=== PATIENT | female | born 1980 | race Caucasian/White ===

== ENCOUNTER 2020-07-01 18:09 | Emergency (ER) | payer BC, SELFPAY ==
--- NOTE | ~2020-07-01 | XR_ITS ---
XR chest 2V DATE: 07/01/2020 18:41 INDICATION: Productive cough TECHNIQUE: 2 views COMPARISON: 10/01/2013 2 view chest FINDINGS: Normal heart size. No hilar or mediastinal enlargement. No pulmonary infiltrate or consolid ation, pleural effusion or pulmonary vascular congestion or pneumothorax. There is dextroscoliosis and degenerative spurring of the thoracic spine. IMPRESSION: No active cardiopulmonary disease Reviewed, dictated and finalized at location A.
[2020-07-01 18:23] VITALS: BP 149/102; PULSE 88; RESP 16; TEMP 36.9; O2SAT 99
[2020-07-01 18:30] VITALS: BP 149/102; PULSE 88; RESP 16; TEMP 36.9; O2SAT 99
--- NOTE | 2020-07-01 18:32 | ED.BACK ---
HPI - Back Pain/Injury General Chief Complaint: Back Pain/Injury Stated Complaint: back pain Time Seen by Provider: 07/01/20 18:32 Source: patient Mode of arrival: ambulatory Limitations: no limitations History of Present Illness HPI Narrative: Sanjuanita Tang is a 40 yo female with a PMH of diabetes, GERD, kidney stones, who comes to express care for treatment of 2 possibly different complaints. First is that she has had upper respiratory symptoms with a nonproductive cough for 3 weeks. She is been COVID tested x2 and did get better for peer to 3 days before she again had return of symptoms. The second symptom that may be intertwined are separate is left back pain. She states that she feels like something is being her upper chest therefore we are going to x-ray her chest and treat her back pain is musculoskeletal to see if there is improvement. Pain is 2/10 with Advil without Advil it is 8 out of 10 Related Data Home Medications Medication Instructions Recorded Confirmed metformin 1,000 mg tablet 1,000 mg PO BID 08/17/19 07/01/20 pantoprazole 40 mg tablet,delayed 40 mg PO QAM 08/17/19 07/01/20 release empagliflozin [Jardiance] 10 mg PO DAILY 07/01/20 07/01/20 Allergies Allergy/AdvReac Type Severity Reaction Status Date / Time amoxicillin Allergy Intermediate rash Verified 07/01/20 18:24 dulaglutide Allergy Unknown Unknown Verified 07/01/20 18:24 morphine Allergy Unknown hives Verified 07/01/20 18:24 topiramate Allergy Unknown Hives Verified 07/01/20 18:24 Review of Systems Review of Systems: Narrative: CONSTITUTIONAL: Denies fever, chills, sweats. EYES: Denies visual changes, redness, discharge. ENT: Denies rhinorrhea, congestion, sore throat, otalgia. CARDIOVASCULAR: Denies chest pain, palpitations, edema. RESPIRATORY: Denies dyspnea, wheezing, dry cough GASTROINTESTINAL: Denies abdominal pain, nausea, vomiting, diarrhea. GENITOURINARY: Denies dysuria, hematuria, abnormal discharge SKIN: Denies rash or itching. NEUROLOGIC: Denies numbness, or focal weakness. PSYCHIATRIC: Denies anxiety or depression. Left back pain PMFSH Past Medical History Medical History Allergies Elevated liver enzymes GERD (gastroesophageal reflux disease) Hyperlipidemia Obesity Type 2 diabetes mellitus Surgical History Surgical History H/O removal of cyst Foot cyst 2006 H/O tubal ligation 2002 H/O: hysterectomy 2016 Family History Family History Mother Hypertension Family history of diabetes mellitus in first degree relative Diabetes mellitus Father Patient's father is in good health Family history of glaucoma Acute myocardial infarction Family history of malignant neoplasm of urinary bladder S/P triple vessel bypass Sibling Patient's brother is in good health Grandparent Diabetes mellitus Other Family history of rheumatoid arthritis Social History Social History Smoking status: Never smoker Alcohol intake: current Substance use: never Gender identity (if verbalized by the patient): Female Comments At time of signature, I agree with nursing past medical, surgical, social and family history. There is no relevant family history pertinent to the presenting complaint. Patient is hypertensive and so we referred for follow-up to primary care physician Exam Narrative: Exam Narrative: GENERAL: This is a well-nourished, well-developed patient, in mild distress. HEAD: normocephalic, atraumatic. EYES: PERRL. Sclera clear/white. Vision is grossly intact. EARS: External ears normal, Hearing grossly intact. NOSE: External nose normal without nasal discharge, nares without redness, no rhinorrhea. THROAT: Mucous membranes moist, posterior pharynx NECK: Neck supple, non-tender CARDIOVASCU
== END 2020-07-01 19:02 | disposition home or self-care (01) ==
PROVIDERS: Emergency Provider Nurse Practitioner; PCP Family Medicine
DX: S39.012A Strain of muscle, fascia and tendon of lower back, initial encounter (principal); X58.XXXA Exposure to other specified factors, initial encounter; R31.9 Hematuria, unspecified; K21.9 Gastro-esophageal reflux disease without esophagitis; E78.5 Hyperlipidemia, unspecified; E11.9 Type 2 diabetes mellitus without complications; E66.9 Obesity, unspecified; Z68.41 Body mass index [BMI] 40.0-44.9, adult
CPT/HCPCS: 71046; 81003; 99213; G0463

== ENCOUNTER 2020-07-04 16:02 | Inpatient (IN) | payer BC, SELFPAY ==
[2020-07-04] VITALS (10 sets, daily range): BP systolic 117–146; BP diastolic 63–98; PULSE 83–107; RESP 12–29; TEMP 36.4–36.9; O2SAT 88–94; BMI 38.9
--- NOTE | ~2020-07-04 | XR_ITS ---
EXAMINATION: XR chest 1V portable DATE: 07/10/2020 06:00 INDICATION: COVID 19 TECHNIQUE: frontal view of the chest was obtained. COMPARISON: Chest radiograph dated 07/08/2020 FINDINGS: Lung volumes remain small. No significant interval change accounting for differences in patient posit ioning in bilateral patchy airspace opacities throughout both lungs. No pneumothorax or definitive pl eural effusion. The cardiomediastinal silhouette is normal limits for AP technique. IMPRESSION: 1. Stable appearance of small lung volumes with diffuse bilateral lung disease consistent with pneumo yris. Reviewed, dictated and finalized at location A. IMPRESSION: 1. Stable appearance of small lung volumes with diffuse bilateral lung disease consistent with pneumonia.
--- NOTE | ~2020-07-04 | CT_ITS ---
EXAMINATION: CTA chest PE protocol EXAM DATE: 07/04/2020 20:25 INDICATION: Shortness of breath, left flank pain. TECHNIQUE: Spiral CTA of the chest (pulmonary arteries) was performed with 100 cc Omnipaque 350 intr avenous contrast injection. Images were acquired during the pulmonary arterial phase. Coronal maxi mum intensity projection 3D-reconstructions were created by the technologist on dedicated workstation . Axial, coronal and sagittal reformatted images were reviewed. The dose-length product (DLP) for t his examination was 839.83 mGy-cm. The exposure was tailored according to patient size (auto mA exp osure control), and iterative reconstruction (ASIR) was used as additional dose reduction technique. There is no prior study for comparison. FINDINGS: There are no pulmonary emboli in the 1st through 3rd order (central and interlobar) pulmon cullen arteries. Some loss of attenuation in the left basilar segmental pulmonary arteries due to respi ratory motion, but no intraluminal filling defects suspected. No thoracic aortic dissection. Patchy bilateral groundglass opacities, probably result of acute infectious, possibly COVID-19. Multi segmental bibasilar atelectasis. There are no pleural or pericardial effusions. Tracheobronchial t ree is patent. There is no mediastinal, hilar or axillary lymphadenopathy. There is no pneumothor ax. Heart normal in size. No evidence of coronary arterial calcification. There is hepatic steat osis. There is thoracic spondylosis without osteoblastic or osteolytic lesions identified. IMPRESSION: 1. Limited left basilar segmental evaluation, but no pulmonary emboli are suspected. 2. Scattered groundglass opacities likely acute infectious process, possible COVID-19. 3. Bibasilar multisegmental atelectasis. Reviewed, dictated and finalized at location A. IMPRESSION: 1. Limited left basilar segmental evaluation, but no pulmonary emboli are susp ected. 2. Scattered groundglass opacities likely acute infectious process, possible C OVID-19. 3. Bibasilar multisegmental atelectasis.
--- NOTE | ~2020-07-04 | XR_ITS ---
EXAMINATION: XR chest 1V portable DATE: 07/08/2020 06:04 INDICATION: COVID-19 pneumonia. TECHNIQUE: A single frontal view of the chest was obtained. COMPARISON: Chest single view 07/06/2020, chest CT 07/04/2020 FINDINGS: There are patchy airspace opacities in all lung zones bilaterally. No pleural effusion or p neumothorax. The heart size is normal. IMPRESSION: 1. Stable diffuse lung disease, consistent with pneumonia. Reviewed, dictated and finalized at location A.
--- NOTE | ~2020-07-04 | XR_ITS ---
EXAMINATION: XR chest 1V portable DATE: 07/06/2020 10:47 INDICATION: COVID pneumonia. Worsening hypoxia. TECHNIQUE: frontal view of the chest was obtained. COMPARISON: Chest radiograph dated 07/04/2020 FINDINGS: Interval progression in patchy airspace opacities in the bilateral mid and lower lung zones consisten t with worsening pneumonia. No pleural effusion or pneumothorax. The cardiomediastinal silhouette is normal. IMPRESSION: 1. Worsening bilateral multifocal pneumonia. Reviewed, dictated and finalized at location B.
--- NOTE | ~2020-07-04 | XR_ITS ---
EXAMINATION: XR chest 1V portable EXAM DATE: 07/04/2020 18:43 INDICATION: Shortness of breath, cough and fever. TECHNIQUE: Portable AP frontal chest x-ray was obtained. Comparison is made to prior examination from 07/01/2020. FINDINGS: Interval development of multiple mid and lower lung zone opacities, some regions of atelect asis but also probably acute infectious process. Please considered/excluded acute lung injury from SA RS-CoV-2. Probable small pleural effusions have developed. Relatively low lung volume. The cardiomedi astinal silhouette is prominent but magnified on this AP technique. There is no pneumothorax suspecte d. IMPRESSION: Development of moderate amount of acute airspace disease. Consider/excluded COVID-19. Reviewed, dictated and finalized at location A. IMPRESSION: Development of moderate amount of acute airspace disease. Consider/ excluded COVID-19.
--- NOTE | 2020-07-04 18:06 | PC.NURSE ---
EKG performed at 1800 and shown to ANA at 1804
--- NOTE | 2020-07-04 18:17 | ECG_ITS ---
Measurements Intervals [place] Rate: 93 P: 42 AK: 144 QRS: 1 QRSD: 89 T: 9 QT: 339 QTc: 422 Interpretive Statements SINUS RHYTHM DELAYED PRECORDIAL R/S TRANSITION BORDERLINE T WAVE ABNORMALITY- INFERIOR LEADS BORDERLINE ECG Electronically Signed On 07-04-2020 18:44:14 CDT by Tony Montana D.O.
[2020-07-04 18:42] LABS: Basophils Percent Auto 0.2 % (0.2-1.2); Hematocrit 48.7 % (37.0-47.0); Hemoglobin 16.3 g/dL (12.0-15.0); Immature Granulocyte Absolute 0.02 K/mm3 (0.00-0.031); Immature Granulocyte Percent A 0.5 % (0-0.5); Lymphocytes Absolute Auto 0.63 K/mm3 (0.9-3.2); Lymphocytes Percent Auto 14.7 % (18.3-44.2); Mean Corpuscular HGB Conc 33.5 g/dl (32-36); Mean Corpuscular Hemoglobin 29.1 pg (26-34); Mean Platelet Volume 11.8 fl (7.4-10.4); Monocytes Absolute Auto 0.3 K/mm3 (0.1-0.6); Monocytes Percent Auto 6.1 % (2.6-8.5); Neutrophils Absolute Auto 3.4 K/mm3 (1.3-6.7); Neutrophils Percent Auto 78.5 % (45.5-73.1); Platelet Count Result 164 k/mm3 (150-375); Red Cell Distribution Width 13.3 % (11.5-14.5); White Blood Count 4.3 K/mm3 (4.5-10.0)
[2020-07-04 19:00] LABS: Anion Gap 9 mmol/L (8-16); Blood Urea Nitrogen 11 mg/dL (7-17); Calcium 8.9 mg/dL (8.4-10.2); Carbon Dioxide 30 mmol/L (22-30); Chloride 98 mmol/L (98-107); Estimated CRCL calculation 150 ml/min; Estimated Glomerular Filt Rate > 60; Glucose 305 mg/dL (65-105); Potassium 4.4 mmol/L (3.4-5.0); Sodium 137 mmol/L (137-145)
--- NOTE | 2020-07-04 19:32 | ED.SOB ---
HPI - SOB/Dyspnea General Chief Complaint: Shortness of Breath/Dyspnea Stated Complaint: L FLANK PAIN,PNFUL DEEP BREATH /-YYMAK2C AGO Time Seen by Provider: 07/04/20 17:57 Source: patient Mode of arrival: ambulatory Limitations: no limitations History of Present Illness HPI Narrative: This patient is a 40 year old female with history of DM, obesity who presents for shortness of breath. She reports she has been having shortness of breath since Thursday. She reports a feeling like she can not take a breath in. She has upper chest pain only with inspiration. She was tested for COVID yesterday at a mobile facility but she does not know her results. She had a negative Covid test 6 days ago. She states she has been coughing for 1 month and her sputum has now become yellow. She also reports a fever of 101 F today, and she took ibuprofen 600 mg at 2pm. She also reports nausea and vomiting yesterday. She has been taking prednisone. MD elicited complaint: shortness of breath Related Data Home Medications Medication Instructions Recorded Confirmed metformin 1,000 mg tablet 1,000 mg PO DAILY 08/17/19 07/04/20 pantoprazole 40 mg tablet,delayed 40 mg PO QAM 08/17/19 07/04/20 release empagliflozin [Jardiance] 10 mg PO DAILY 07/01/20 07/04/20 Allergies Allergy/AdvReac Type Severity Reaction Status Date / Time amoxicillin Allergy Intermediate rash Verified 07/01/20 18:24 dulaglutide Allergy Unknown Unknown Verified 07/01/20 18:24 morphine Allergy Unknown hives Verified 07/01/20 18:24 topiramate Allergy Unknown Hives Verified 07/01/20 18:24 Review of Systems Review of Systems: All systems reviewed & are unremarkable except as noted in HPI and below Constitutional: Constitutional: Reports chills, Reports fatigue and Reports fever(s) Cardiovascular: Cardiovascular: Reports chest pain and Denies radiating jaw, neck or arm pain Respiratory: Respiratory: Reports cough and Reports dyspnea Gastrointestinal: Gastrointestinal: Denies diarrhea, Reports nausea and Reports vomiting Genitourinary: Genitourinary: Denies hematuria, Denies dysuria and Reports flank pain Neurologic: Reports headache(s) PMFSH Past Medical History Medical History Allergies Elevated liver enzymes GERD (gastroesophageal reflux disease) Hyperlipidemia Obesity Type 2 diabetes mellitus Surgical History Surgical History H/O removal of cyst Foot cyst 2006 H/O tubal ligation 2002 H/O: hysterectomy 2016 Family History Family History Mother Hypertension Family history of diabetes mellitus in first degree relative Diabetes mellitus Father Patient's father is in good health Family history of glaucoma Acute myocardial infarction Family history of malignant neoplasm of urinary bladder S/P triple vessel bypass Sibling Patient's brother is in good health Grandparent Diabetes mellitus Other Family history of rheumatoid arthritis Social History Social History Smoking status: Never smoker Alcohol intake: current Drinks per week: 1 Substance use: never Gender identity (if verbalized by the patient): Female Spiritual care concerns: No Exam Const: General: alert and ill appearing Nutritional Appearance: obese Orientation/consciousness: patient oriented x3 Other: mild distress HENMT: Ears: TM's normal bilaterally Eyes: EOM: EOMs intact bilaterally Neck: Neck: normal visual inspection and no lymphadenopathy Chest: Chest palpation & inspection: normal inspection of the chest Resp: Effort & Inspection: no retractions and no use of accessory muscles Auscultation: clear to auscultation bilaterally, crackles and diminished lung sounds Other: mild tachypnea Cardio: Rate: regular rate Rhythm: regular rhythm Hear
[2020-07-04] MEDS: ALBUTEROL SULFATE (*SP) AEROSOL 1 PUFF 6 PUFF INHALATION (19:56)
[2020-07-04 19:57] LABS: Alanine Aminotransferase 198 U/L (4-35); Albumin Level 4.2 g/dL (3.5-5.1); Alkaline Phosphatase 102 U/L (38-126); Aspartate Amino Transferase 165 U/L (14-36); Bilirubin,Total 0.4 mg/dL (0.2-1.3)
[2020-07-04 20:03] LABS: CRP 2.7 mg/dL (<1.0)
[2020-07-04 20:07] LABS: Alveolar/Arterial O2 Gradient 144.2 mmHg; Carboxyhemoglobin 0.9 % THb (0-2.0); Fractional Inspired Oxygen 36 %; HCO3 ABG 27.6 mEq/l (22.0-26.0); Methemoglobin ABG 0.2 %THb (0-1.5); Oxygen Content ABG 21.1 %vol (16.0-22.0); Oxygen Saturation ABG 93.1 % (95.0-100.0); Oxyhemoglobin 91.8 % THb (90.0-100.0); PCO2 ABG 41.9 mmHg (35.0-45.0); PO2 ABG 63.9 mmHg (80.0-100.0); PO2 FiO2 Ratio Arterial Blood 1.78 %; Reduced Hemoglobin 7.1 %THb (0-5.0); Total Hemoglobin 16.4 g/dL (12.0-18.0); pH ABG 7.436 (7.350-7.450)
[2020-07-04 20:09] LABS: Troponin I < 0.012 ng/mL (0.000-0.034)
[2020-07-04 20:26] LABS: Add Urine Microscopic? YES; Amorphous Sediment Urine Few; Appearance Urine Clear (Clear); Bacteria Urine Trace /hpf; Bilirubin Urine Negative (Negative); Blood Urine Negative (Negative); Budding Yeast Urine Present /hpf; Color Urine Yellow (Yellow); Glucose Urine UA 3+ mg/dL (Negative); Ketones Urine 1+ mg/dL (Negative); Leukocyte Esterase Ur 1+ LEU/UL (Negative); Mucus Urine Rare /lpf; Nitrate Urine Negative (Negative); Protein Urine Negative (Negative); Squamous Epithelial Cell Urine Many /hpf (Few); Urobilinogen Urine Negative mg/dL (<2.0)
[2020-07-04 20:27] LABS: Lactic Acid Reflex 1.4 mmol/L (0.7-2.1)
[2020-07-04 20:28] LABS: Specific Grav Ur 1.037 (1.001-1.035)
[2020-07-04 20:50] LABS: Partial Thromboplastin Time 26.9 SECONDS (22.3-36.8); Prothrombin Time 13.2 Seconds (11.1-14.7)
--- NOTE | 2020-07-04 21:32 | PM.IMHP ---
H&P: HPI History of Present Illness Date/Time: 07/04/20 21:32 Chief complaint: acute respiratory failure, covid rule out Narrative: This is a pleasant 40 year morbidly obese Diabetic female who presented to the hospital with a complaint of worsening shortness of breath over the past four days. 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 Tonight she complains she is having a hard time getting a full breath. She has had a sporadic intermittent productive cough. Today she also had a fever of 101 F at home. In the ER tonight the patient has been nauseated and vomiting. She has not eaten anything today. Routine labs demonstrated an elevated d-dimer. CTA chest revealed scattered groundglass opacities. The patient was placed on 4L of oxygen via NC and given a breathing treatment and antibiotics. She denies any other symptoms at this time. Review of Systems Review of Systems: All systems reviewed & are unremarkable except as noted in HPI and below PMFSH Past Medical History Medical History Allergies Elevated liver enzymes GERD (gastroesophageal reflux disease) Hyperlipidemia Obesity Type 2 diabetes mellitus Surgical History Surgical History H/O removal of cyst Foot cyst 2006 H/O tubal ligation 2002 H/O: hysterectomy 2016 Family History Family History Mother Hypertension Family history of diabetes mellitus in first degree relative Diabetes mellitus Father Patient's father is in good health Family history of glaucoma Acute myocardial infarction Family history of malignant neoplasm of urinary bladder S/P triple vessel bypass Sibling Patient's brother is in good health Grandparent Diabetes mellitus Other Family history of rheumatoid arthritis Social History Social History Smoking status: Never smoker Alcohol intake: current Drinks per week: 1 Substance use: never Gender identity (if verbalized by the patient): Female Spiritual care concerns: No Meds Home Medications and Allergies Home Medications Medication Instructions Recorded Confirmed Type metformin 1,000 mg tablet 1,000 mg PO DAILY 08/17/19 07/04/20 History pantoprazole 40 mg tablet,delayed 40 mg PO QAM 08/17/19 07/04/20 History release albuterol sulfate 2 inh INHALATION QID PRN #1 ea 07/01/20 07/04/20 Rx empagliflozin [Jardiance] 10 mg PO DAILY 07/01/20 07/04/20 History Allergies Allergy/AdvReac Type Severity Reaction Status Date / Time amoxicillin Allergy Intermediate rash Verified 07/01/20 18:24 dulaglutide Allergy Unknown Unknown Verified 07/01/20 18:24 morphine Allergy Unknown hives Verified 07/01/20 18:24 topiramate Allergy Unknown Hives Verified 07/01/20 18:24 Vital Signs Vital Signs - 24 hr 07/04/20 18:01 07/04/20 18:26 07/04/20 18:30 Temperature 36.4 C Pulse Rate 98 105 H 107 H Respiratory Rate 24 H 24 H 12 Blood Pressure 146/98 H Pulse Oximetry 91 93 88 L 07/04/20 18:31 07/04/20 18:32 07/04/20 18:45 Temperature Pulse Rate 96 100 98 Respiratory Rate 29 H 29 H Blood Pressure 125/82 Pulse Oximetry 93 93 93 07/04/20 18:46 07/04/20 18:47 07/04/20 20:40 Temperature Pulse Rate 95 98 103 H Respiratory Rate 28 H 28 H 18 Blood Pressure 133/79 135/88 Pulse Oximetry 93 93 93 Exam Const: General: cooperative, alert, awake, acute distress mild and other (On 4L of oxygen via NC. ) Nutritional Appearance: obese morbidly obese Orientation/consciousness: patient oriented x3 HENMT: Head: normal to inspection General nose exam: Normal external nose present Face and sinus: normal facial exam Mouth: Yes Normal oral and palatal mucosa present and Yes oropharynx normal Eyes: Pupils: Equal, round and reactive pupils present
--- NOTE | 2020-07-04 22:02 | ADMGEN ---
This patient, Sanjuanita Tang, was admitted to 3 [facility] Surg Room 329-01. Patient/family oriented to hospital policies and general routines including ID bracelet, bed and alarms, visiting hours, pain management, procedures, bathroom and other care routines, personal items, smoking policy, room service/diet, and visiting hours. Valuables list has been completed. Information on how to activate the Rapid Response Team has been discussed. Patient/Family are encouraged to report perceived risks to care and to ask questions if they do not understand what they are told or what they should do.
[2020-07-04] MEDS: SODIUM CHLORIDE 0.9% IV 1,000 ML 125 ML IV CONT (22:13)
[2020-07-05] VITALS (9 sets, daily range): BP systolic 123–145; BP diastolic 73–89; PULSE 82–108; RESP 18–20; TEMP 36.8–37.1; O2SAT 87–94
[2020-07-05 03:43] LABS: Influenza Control Positive
[2020-07-05 06:23] LABS: Basophils Percent Auto 0.2 % (0.2-1.2); Hematocrit 43.5 % (37.0-47.0); Hemoglobin 14.4 g/dL (12.0-15.0); Immature Granulocyte Absolute 0.01 K/mm3 (0.00-0.031); Immature Granulocyte Percent A 0.2 % (0-0.5); Lymphocytes Absolute Auto 1.18 K/mm3 (0.9-3.2); Lymphocytes Percent Auto 20.5 % (18.3-44.2); Mean Corpuscular HGB Conc 33.1 g/dl (32-36); Mean Corpuscular Hemoglobin 28.4 pg (26-34); Mean Corpuscular Volume 85.8 fl (80-100); Mean Platelet Volume 11.3 fl (7.4-10.4); Monocytes Absolute Auto 0.5 K/mm3 (0.1-0.6); Monocytes Percent Auto 8.3 % (2.6-8.5); Neutrophils Absolute Auto 4.1 K/mm3 (1.3-6.7); Neutrophils Percent Auto 70.8 % (45.5-73.1); Platelet Count Result 152 k/mm3 (150-375); Red Blood Count 5.07 M/mm3 (4.2-5.4); Red Cell Distribution Width 13.3 % (11.5-14.5); White Blood Count 5.8 K/mm3 (4.5-10.0)
[2020-07-05 07:05] LABS: Alanine Aminotransferase 150 U/L (4-35); Albumin Level 3.6 g/dL (3.5-5.1); Alkaline Phosphatase 78 U/L (38-126); Anion Gap 9 mmol/L (8-16); Aspartate Amino Transferase 118 U/L (14-36); Bilirubin,Total 0.4 mg/dL (0.2-1.3); Blood Urea Nitrogen 12 mg/dL (7-17); Calcium 8.1 mg/dL (8.4-10.2); Carbon Dioxide 29 mmol/L (22-30); Chloride 99 mmol/L (98-107); Estimated CRCL calculation 144 ml/min; Estimated Glomerular Filt Rate > 60; Glucose 210 mg/dL (65-105); Potassium 3.7 mmol/L (3.4-5.0); Sodium 137 mmol/L (137-145)
[2020-07-05 07:41] LABS: Device NASAL CANNULA; Modified Allen's Test Pass; Site Drawn RIGHT RADIAL
[2020-07-05] MEDS: DEXAMETHASONE 2 MG TABLET 6 MG PO (08:16)
[2020-07-05] MEDS: metFORMIN HCL 500 MG TABLET 1000 MG PO (08:16)
[2020-07-05] MEDS: PANTOPRAZOLE 40 MG TABLET PO (08:17)
[2020-07-05] MEDS: SODIUM CHLORIDE 0.9% IV 1,000 ML 125 ML IV CONT (08:18)
[2020-07-05] MEDS: ALBUTEROL SULFATE (*SP) AEROSOL 1 PUFF 6 PUFF INHALATION ×4 (08:18→20:51)
[2020-07-05] MEDS: INSULIN ASPART (*BKC) 100 UNITS/ML SUB-Q ×3 (08:24→17:14)
[2020-07-05 09:06] LABS: Glucose Point of Care 208 (65-105)
[2020-07-05 14:20] LABS: SARS-CoV-2 RNA PCR Positive
--- NOTE | 2020-07-05 15:17 | PM.IMPN ---
Progress Note: A&P Assessment and Plan (1) Pneumonia due to COVID-19 virus: Code(s): U07.1 - COVID-19; J12.89 - Other viral pneumonia Status: Acute Assessment and Plan: -----patient's symptoms, CT findings and PCR testing consistent with COVID-19. She is currently on 3 L and her oxygen saturation is 91%. Since she is COVID positive I will stop the ceftriaxone, azithromycin and IV fluids at this time. Patient appears euvolemic on exam. She has been on Decadron. Remdesivir has not been started due to elevated liver enzymes. She was instructed to continue to take deep breaths. She has a decreased appetite and diarrhea which is also consistent with COVID-19. Continue supportive care at this time and monitor closely. Will start Lovenox (2) Acute respiratory failure with hypoxia: Code(s): J96.01 - Acute respiratory failure with hypoxia Status: Acute Assessment and Plan: -----secondary to above (3) Pneumonia: Code(s): J18.9 - Pneumonia, unspecified organism Status: Acute Assessment and Plan: -----see above. Influenza negative (4) Suspected 2019 novel coronavirus infection: Code(s): Z20.828 - Contact with and (suspected) exposure to other viral communicable diseases Status: Acute (5) Sepsis: Qualifiers: Sepsis type: sepsis due to unspecified organism Sepsis acute organ dysfunction status: with acute organ dysfunction Severe sepsis acute organ dysfunction type: acute respiratory failure Acute respiratory failure type: with hypoxia Severe sepsis shock status: without septic shock Qualified Code(s): A41.9 - Sepsis, unspecified organism; R65.20 - Severe sepsis without septic shock; J96.01 - Acute respiratory failure with hypoxia Code(s): A41.9 - Sepsis, unspecified organism Status: Acute Assessment and Plan: -----noted on exam with tachycardia, tachypnea, and leucopenia. Source of sepsis appears to be due to COVID-19. Blood cultures are pending and UA appears to be contaminated (6) Elevated liver enzymes: Code(s): R74.8 - Abnormal levels of other serum enzymes Status: Acute Assessment and Plan: ------May be secondary to COVID-19 vs. fatty liver disease. Monitor LFTs. Hepatitis panel in the morning (7) Type 2 diabetes mellitus: Qualifiers: Diabetes mellitus retirement insulin use: without roasterman use Diabetes mellitus complication status: without complication Qualified Code(s): E11.9 - Type 2 diabetes mellitus without complications Code(s): E11.9 - Type 2 diabetes mellitus without complications Status: Chronic Assessment and Plan: ------last glucose 208. Likely more elevated due to steroids. Continue Accuchecks, SSI coverage, hypoglycemic protocol. Continue Metformin and Jardiance. (8) GERD (gastroesophageal reflux disease): Qualifiers: Esophagitis presence: without esophagitis Qualified Code(s): K21.9 - Gastro-esophageal reflux disease without esophagitis Code(s): K21.9 - Gastro-esophageal reflux disease without esophagitis Status: Acute Assessment and Plan: Continue Protonix. Additional Plan Time Spent With Patient Time with patient: 25 - 35 minutes Subjective Date/time seen: 07/05/20 15:17 Interval history: Pt is a 40-year-old female here for COVID-19 pneumonia. Patient was seen today and states she is having a hard time taking deep breaths as it hurts when she does so. She is still coughing but she is now coughing up some yellow sputum. She feels short of breath with any activity. She says her is at home with the same symptoms. She started having diarrhea today and has a low appetite. She denies chest pain nausea or vomiting. Review of Systems Review of Systems: All systems reviewed & are unremarkable except as noted in HPI and below Exam Narrative: Exam Narrative: Gen
[2020-07-05] MEDS: ENOXAPARIN 40 MG/0.4 ML SYRINGE SUB-Q (17:08)
[2020-07-05 17:49] LABS: Glucose Point of Care 278 (65-105)
[2020-07-05 17:49] LABS: Glucose Point of Care 254 (65-105)
--- NOTE | 2020-07-05 18:55 | PC.NURSE ---
[address] knapp regarding pharmacy clerification , pt unable to get her jardiance her and does not want to start invokana. just continue metformin and sliding scaale.
[2020-07-05 21:18] LABS: Glucose Point of Care 235 (65-105)
[2020-07-05] MEDS: ALPRAZolam (*CRX) 0.25 MG TABLET PO (21:21)
[2020-07-06] VITALS (14 sets, daily range): BP systolic 127–165; BP diastolic 61–90; PULSE 73–106; RESP 16–32; TEMP 37.1–37.8; O2SAT 78–96
[2020-07-06] MEDS: ACETAMINOPHEN 325 MG TABLET 650 MG PO ×3 (05:05→17:17)
[2020-07-06 06:46] LABS: Hematocrit 44.3 % (37.0-47.0); Hemoglobin 14.6 g/dL (12.0-15.0); Mean Corpuscular Hemoglobin 28.6 pg (26-34); Mean Corpuscular Volume 86.9 fl (80-100); Mean Platelet Volume 11.4 fl (7.4-10.4); Platelet Count Result 168 k/mm3 (150-375); Red Cell Distribution Width 13.4 % (11.5-14.5); White Blood Count 6.7 K/mm3 (4.5-10.0)
[2020-07-06 06:59] LABS: Alanine Aminotransferase 153 U/L (4-35); Albumin Level 3.5 g/dL (3.5-5.1); Alkaline Phosphatase 73 U/L (38-126); Anion Gap 9 mmol/L (8-16); Aspartate Amino Transferase 130 U/L (14-36); Bilirubin,Total 0.6 mg/dL (0.2-1.3); Blood Urea Nitrogen 10 mg/dL (7-17); CRP 3.5 mg/dL (<1.0); Calcium 8.4 mg/dL (8.4-10.2); Carbon Dioxide 28 mmol/L (22-30); Chloride 96 mmol/L (98-107); Estimated CRCL calculation 175 ml/min; Estimated Glomerular Filt Rate > 60; Glucose 180 mg/dL (65-105); Potassium 3.5 mmol/L (3.4-5.0); Sodium 133 mmol/L (137-145)
[2020-07-06 08:15] LABS: Hepatitis B Surface Antigen Negative (Negative)
[2020-07-06 08:21] LABS: HAV RESULT Negative (Negative); Hepatitis B Core IgM Result Negative (Negative)
[2020-07-06 08:33] LABS: Hepatitis C Virus Antibody Negative (Negative)
[2020-07-06] MEDS: ALBUTEROL SULFATE (*SP) AEROSOL 1 PUFF 6 PUFF INHALATION ×4 (08:34→20:41)
[2020-07-06] MEDS: DEXAMETHASONE 2 MG TABLET 6 MG PO (10:17)
[2020-07-06] MEDS: PANTOPRAZOLE 40 MG TABLET PO (10:19)
--- NOTE | 2020-07-06 10:24 | PM.IMPN ---
Progress Note: A&P Assessment and Plan (1) Pneumonia due to COVID-19 virus: Code(s): U07.1 - COVID-19; J12.89 - Other viral pneumonia Status: Acute Assessment and Plan: ----- patient appears to be worse today and continues to have shallow breathing with elevated respiratory rate. Oxygen was checked on exam and was 79% on 4 L. She had just went to the commode which is likely why her oxygen dropped more. She was placed on 10 L and went up to 90%. Respiratory was called and are evaluating her. She will be placed on continuous pulse oximetry and her Decadron was given at this time. no chest pain. I do not believe she needs to be moved to the unit at this time but will be closely monitored. I will do a repeat chest x-ray. Inflammatory markers a little more elevated today. Unable to take from does severe due to liver disease. Continue Lovenox. discussed with nursing staff (2) Acute respiratory failure with hypoxia: Code(s): J96.01 - Acute respiratory failure with hypoxia Status: Acute Assessment and Plan: -----secondary to above (3) Pneumonia: Code(s): J18.9 - Pneumonia, unspecified organism Status: Acute Assessment and Plan: -----see above. Influenza negative (4) Suspected 2019 novel coronavirus infection: Code(s): Z20.828 - Contact with and (suspected) exposure to other viral communicable diseases Status: Acute (5) Sepsis: Qualifiers: Sepsis type: sepsis due to unspecified organism Sepsis acute organ dysfunction status: with acute organ dysfunction Severe sepsis acute organ dysfunction type: acute respiratory failure Acute respiratory failure type: with hypoxia Severe sepsis shock status: without septic shock Qualified Code(s): A41.9 - Sepsis, unspecified organism; R65.20 - Severe sepsis without septic shock; J96.01 - Acute respiratory failure with hypoxia Code(s): A41.9 - Sepsis, unspecified organism Status: Acute Assessment and Plan: -----noted on exam with tachycardia, tachypnea, and leucopenia. Source of sepsis appears to be due to COVID-19. Blood cultures are pending and UA appears to be contaminated (6) Elevated liver enzymes: Code(s): R74.8 - Abnormal levels of other serum enzymes Status: Acute Assessment and Plan: ------May be secondary to COVID-19 vs. fatty liver disease. Monitor LFTs. little worse today, hepatitis screen negative. CT of the chest did show hepatic steatosis (7) Type 2 diabetes mellitus: Qualifiers: Diabetes mellitus retirement insulin use: without termite control representative use Diabetes mellitus complication status: without complication Qualified Code(s): E11.9 - Type 2 diabetes mellitus without complications Code(s): E11.9 - Type 2 diabetes mellitus without complications Status: Chronic Assessment and Plan: ------last glucose 180. Likely more elevated due to steroids. Continue Accuchecks, SSI coverage, hypoglycemic protocol. Continue Metformin and Jardiance. (8) GERD (gastroesophageal reflux disease): Qualifiers: Esophagitis presence: without esophagitis Qualified Code(s): K21.9 - Gastro-esophageal reflux disease without esophagitis Code(s): K21.9 - Gastro-esophageal reflux disease without esophagitis Status: Acute Assessment and Plan: Continue Protonix. Additional Plan Subjective Date/time seen: 07/06/20 10:24 Interval history: Pt is a 40-year-old female here for COVID-19 pneumonia. Patient was seen today and states she is having a hard time taking deep breaths as it hurts when she does so. She feels increasingly short of breath and has sharp chest pains when she takes a deep breath. She continues to cough. She has had about 8 episodes of diarrhea as well and she still has no appetite. Exam Narrative: Exam Narrative: General: Well developed well nourished patient in [facility]
[2020-07-06 10:47] LABS: Alveolar/Arterial O2 Gradient 615.1 mmHg; Base Excess ABG 2.5 mEq/l (+/-2.0); Carboxyhemoglobin 0.4 % THb (0-2.0); Fractional Inspired Oxygen 100 %; HCO3 ABG 26.5 mEq/l (22.0-26.0); Methemoglobin ABG 0.4 %THb (0-1.5); Oxygen Content ABG 19.9 %vol (16.0-22.0); Oxygen Saturation ABG 91.7 % (95.0-100.0); Oxyhemoglobin 90.3 % THb (90.0-100.0); PCO2 ABG 39.1 mmHg (35.0-45.0); PO2 ABG 58.8 mmHg (80.0-100.0); PO2 FiO2 Ratio Arterial Blood 0.59 %; Reduced Hemoglobin 8.9 %THb (0-5.0); Total Hemoglobin 15.7 g/dL (12.0-18.0); pH ABG 7.449 (7.350-7.450)
[2020-07-06 10:49] LABS: Device NON-REBREATHER MASK; Modified Allen's Test Pass; Site Drawn LEFT RADIAL
[2020-07-06] MEDS: ALPRAZolam (*CRX) 0.25 MG TABLET PO ×2 (11:17→17:18)
[2020-07-06 11:46] LABS: Glucose Point of Care 210 (65-105)
[2020-07-06 11:46] LABS: Glucose Point of Care 224 (65-105)
[2020-07-06] MEDS: FUROSEMIDE INJ 40 MG/4 ML VIAL IV PUSH (12:13)
[2020-07-06] MEDS: ENOXAPARIN 40 MG/0.4 ML SYRINGE SUB-Q ×2 (12:13→21:03)
[2020-07-06] MEDS: INSULIN ASPART (*BKC) 100 UNITS/ML SUB-Q ×2 (12:35→17:20)
[2020-07-06 17:38] LABS: Glucose Point of Care 262 (65-105)
[2020-07-06] MEDS: HYDROcodone/acetaminophen (*CRX) 5-325 MG TABLET 1 TAB PO (23:26)
[2020-07-07] VITALS (16 sets, daily range): BP systolic 106–128; BP diastolic 68–91; PULSE 66–105; RESP 11–40; TEMP 36.8–37.9; O2SAT 90–98
[2020-07-07 04:37] LABS: Hematocrit 49.7 % (37.0-47.0); Hemoglobin 16.5 g/dL (12.0-15.0); Mean Corpuscular HGB Conc 33.2 g/dl (32-36); Mean Corpuscular Hemoglobin 28.8 pg (26-34); Mean Corpuscular Volume 86.9 fl (80-100); Mean Platelet Volume 10.9 fl (7.4-10.4); Platelet Count Result 195 k/mm3 (150-375); Red Blood Count 5.72 M/mm3 (4.2-5.4); Red Cell Distribution Width 13.5 % (11.5-14.5); White Blood Count 8.9 K/mm3 (4.5-10.0)
[2020-07-07 04:51] LABS: D Dimer 0.73 ug/mL (<0.48)
[2020-07-07 04:56] LABS: Alanine Aminotransferase 154 U/L (4-35); Albumin Level 3.9 g/dL (3.5-5.1); Alkaline Phosphatase 83 U/L (38-126); Anion Gap 8 mmol/L (8-16); Aspartate Amino Transferase 83 U/L (14-36); Bilirubin,Total 0.8 mg/dL (0.2-1.3); Blood Urea Nitrogen 12 mg/dL (7-17); CRP 8.2 mg/dL (<1.0); Calcium 9.2 mg/dL (8.4-10.2); Carbon Dioxide 34 mmol/L (22-30); Chloride 94 mmol/L (98-107); Estimated CRCL calculation 144 ml/min; Estimated Glomerular Filt Rate > 60; Glucose 199 mg/dL (65-105); Magnesium 2.2 mg/dL (1.6-2.3); Potassium 3.7 mmol/L (3.4-5.0); Sodium 136 mmol/L (137-145)
[2020-07-07] MEDS: traMADol HCL (*CRX) 25 MG TABLET PO (06:21)
[2020-07-07] MEDS: ACETAMINOPHEN 325 MG TABLET 650 MG PO (08:08)
[2020-07-07] MEDS: DEXAMETHASONE 2 MG TABLET 6 MG PO (08:09)
[2020-07-07] MEDS: PANTOPRAZOLE 40 MG TABLET PO (08:09)
[2020-07-07] MEDS: ALBUTEROL SULFATE (*SP) AEROSOL 1 PUFF 6 PUFF INHALATION ×4 (09:16→19:28)
[2020-07-07] MEDS: ALPRAZolam (*CRX) 0.25 MG TABLET PO ×2 (12:05→20:04)
[2020-07-07] MEDS: ENOXAPARIN 40 MG/0.4 ML SYRINGE SUB-Q ×2 (12:05→20:04)
[2020-07-07 12:20] LABS: Glucose Point of Care 255 (65-105)
[2020-07-07] MEDS: HYDROcodone/acetaminophen (*CRX) 5-325 MG TABLET 1 TAB PO ×2 (12:26→20:04)
[2020-07-07] MEDS: INSULIN ASPART (*BKC) 100 UNITS/ML SUB-Q ×2 (12:26→17:41)
--- NOTE | 2020-07-07 13:36 | PCPTNOTE ---
Attempted PT evaluation this date however RN stated to hold until a later date/time due to pt's oxygen level dropping with minimal movement.
--- NOTE | 2020-07-07 15:36 | PM.IMPN ---
Progress Note: A&P Assessment and Plan (1) Pneumonia due to COVID-19 virus: Code(s): U07.1 - COVID-19; J12.89 - Other viral pneumonia Status: Acute Assessment and Plan: -----patient is on 15 L high-flow therapy and is satting between 90% and 93%. She becomes hypoxic with any movement so she is on bed rest at this time. She is coughing up sputum and feels congested so I am going to get a sputum culture and give Mucinex. Since she is on the max oxygen and rapidly declined yesterday, convalescent plasma was ordered and will likely be her tomorrow. She is unable to take them does severe due to high liver counts but is on the dexamethasone. Continue high-flow oxygen therapy and dexamethasone at this time. We discussed the plan of care which include intubation if she gets any worse. Continue Lovenox 40 mg q.12. (2) Acute respiratory failure with hypoxia: Code(s): J96.01 - Acute respiratory failure with hypoxia Status: Acute Assessment and Plan: -----secondary to above (3) Pneumonia: Code(s): J18.9 - Pneumonia, unspecified organism Status: Acute Assessment and Plan: -----see above. Influenza negative (4) Suspected 2019 novel coronavirus infection: Code(s): Z20.828 - Contact with and (suspected) exposure to other viral communicable diseases Status: Acute (5) Sepsis: Qualifiers: Sepsis type: sepsis due to unspecified organism Sepsis acute organ dysfunction status: with acute organ dysfunction Severe sepsis acute organ dysfunction type: acute respiratory failure Acute respiratory failure type: with hypoxia Severe sepsis shock status: without septic shock Qualified Code(s): A41.9 - Sepsis, unspecified organism; R65.20 - Severe sepsis without septic shock; J96.01 - Acute respiratory failure with hypoxia Code(s): A41.9 - Sepsis, unspecified organism Status: Acute Assessment and Plan: -----noted on exam with tachycardia, tachypnea, and leucopenia. Source of sepsis appears to be due to COVID-19. Blood cultures no growth to date and UA appears to be contaminated (6) Elevated liver enzymes: Code(s): R74.8 - Abnormal levels of other serum enzymes Status: Acute Assessment and Plan: ------May be secondary to COVID-19 vs. fatty liver disease. Monitor LFTs. hepatitis screen negative. CT of the chest did show hepatic steatosis (7) Type 2 diabetes mellitus: Qualifiers: Diabetes mellitus usp insulin use: without terminal operations manager use Diabetes mellitus complication status: without complication Qualified Code(s): E11.9 - Type 2 diabetes mellitus without complications Code(s): E11.9 - Type 2 diabetes mellitus without complications Status: Chronic Assessment and Plan: ------last glucose 255. Her insulin regimen was increased yesterday and we will continue Jardiance. I am going to start Lantus since she is on steroids and her appetite is improving so she is going to be eating more. Continue Accuchecks, SSI coverage, hypoglycemic protocol. Continue Metformin and Jardiance. (8) GERD (gastroesophageal reflux disease): Qualifiers: Esophagitis presence: without esophagitis Qualified Code(s): K21.9 - Gastro-esophageal reflux disease without esophagitis Code(s): K21.9 - Gastro-esophageal reflux disease without esophagitis Status: Acute Assessment and Plan: Continue Protonix. Additional Plan Subjective Date/time seen: 07/07/20 15:36 Interval history: Pt is a 40-year-old female here for COVID-19 pneumonia. Patient was seen today and states she is feeling okay. She feels better than she did yesterday. She is coughing more and is producing sputum that is slightly blood-streaked. She feels out of breath with any type of movement whatsoever. Her diarrhea has resolved and her appetite is increasing. She still has lots of anxiety wh
[2020-07-07 18:09] LABS: Glucose Point of Care 257 (65-105)
[2020-07-07] MEDS: guaiFENesin 12 HR 600 MG TABCR PO (20:04)
[2020-07-07] MEDS: INSULIN GLARGINE (*BKC) 100 UNITS/ML 8 UNITS SUB-Q (20:06)
[2020-07-07 20:27] LABS: Glucose Point of Care 253 (65-105)
[2020-07-08] VITALS (21 sets, daily range): BP systolic 105–128; BP diastolic 69–75; PULSE 68–94; RESP 11–36; TEMP 36.8–37.3; O2SAT 74–97
[2020-07-08 04:17] LABS: Hematocrit 45.6 % (37.0-47.0); Hemoglobin 15.1 g/dL (12.0-15.0); Mean Corpuscular HGB Conc 33.1 g/dl (32-36); Mean Corpuscular Hemoglobin 28.6 pg (26-34); Mean Corpuscular Volume 86.4 fl (80-100); Mean Platelet Volume 11.3 fl (7.4-10.4); Platelet Count Result 217 k/mm3 (150-375); Red Blood Count 5.28 M/mm3 (4.2-5.4); Red Cell Distribution Width 13.4 % (11.5-14.5); White Blood Count 9.1 K/mm3 (4.5-10.0)
[2020-07-08] MEDS: HYDROcodone/acetaminophen (*CRX) 5-325 MG TABLET 1 TAB PO ×3 (04:31→20:25)
[2020-07-08 04:35] LABS: Alanine Aminotransferase 93 U/L (4-35); Albumin Level 3.6 g/dL (3.5-5.1); Alkaline Phosphatase 68 U/L (38-126); Anion Gap 6 mmol/L (8-16); Aspartate Amino Transferase 45 U/L (14-36); Bilirubin,Total 0.7 mg/dL (0.2-1.3); Blood Urea Nitrogen 14 mg/dL (7-17); CRP 7.8 mg/dL (<1.0); Calcium 8.9 mg/dL (8.4-10.2); Carbon Dioxide 31 mmol/L (22-30); Chloride 94 mmol/L (98-107); Estimated CRCL calculation 144 ml/min; Estimated Glomerular Filt Rate > 60; Glucose 207 mg/dL (65-105); Potassium 3.7 mmol/L (3.4-5.0); Sodium 131 mmol/L (137-145)
[2020-07-08 04:38] LABS: D Dimer 0.27 ug/mL (<0.48)
[2020-07-08] MEDS: ALBUTEROL SULFATE (*SP) AEROSOL 1 PUFF 6 PUFF INHALATION ×4 (07:52→20:41)
--- NOTE | 2020-07-08 08:31 | PCPTNOTE ---
RN continues to recommend a wait on PT evaluation as patient's O2 requirements have increased. Will continue to monitor.
[2020-07-08] MEDS: ENOXAPARIN 40 MG/0.4 ML SYRINGE SUB-Q ×2 (09:43→20:27)
[2020-07-08] MEDS: guaiFENesin 12 HR 600 MG TABCR PO ×2 (09:43→20:27)
[2020-07-08] MEDS: PANTOPRAZOLE 40 MG TABLET PO (09:43)
[2020-07-08] MEDS: DEXAMETHASONE 2 MG TABLET 6 MG PO (09:43)
[2020-07-08 10:12] LABS: Glucose Point of Care 194 (65-105)
[2020-07-08] MEDS: ALPRAZolam (*CRX) 0.25 MG TABLET PO ×2 (12:10→20:25)
[2020-07-08 12:37] LABS: Glucose Point of Care 236 (65-105)
[2020-07-08] MEDS: INSULIN ASPART (*BKC) 100 UNITS/ML SUB-Q ×2 (12:55→17:10)
--- NOTE | 2020-07-08 14:24 | PM.IMPN ---
Progress Note: A&P Assessment and Plan (1) Pneumonia due to COVID-19 virus: Code(s): U07.1 - COVID-19; J12.89 - Other viral pneumonia Status: Acute Assessment and Plan: -----patient is on airvo and is satting between 90% and 93%. she got down to 84 while getting a bath but recovered. She recieved plasma 07/08/20. She becomes hypoxic with any movement so she is on bed rest at this time. She is coughing up sputum and feels congested still. Remdesivir due to high liver counts but is on the dexamethasone. Continue airvo therapy and dexamethasone at this time. We discussed the plan of care which includes intubation if she gets any worse. Continue Lovenox 40 mg q.12. (2) Acute respiratory failure with hypoxia: Code(s): J96.01 - Acute respiratory failure with hypoxia Status: Acute Assessment and Plan: -----secondary to above (3) Pneumonia: Code(s): J18.9 - Pneumonia, unspecified organism Status: Acute Assessment and Plan: -----see above. Influenza negative (4) Suspected 2019 novel coronavirus infection: Code(s): Z20.828 - Contact with and (suspected) exposure to other viral communicable diseases Status: Acute (5) Sepsis: Qualifiers: Sepsis type: sepsis due to unspecified organism Sepsis acute organ dysfunction status: with acute organ dysfunction Severe sepsis acute organ dysfunction type: acute respiratory failure Acute respiratory failure type: with hypoxia Severe sepsis shock status: without septic shock Qualified Code(s): A41.9 - Sepsis, unspecified organism; R65.20 - Severe sepsis without septic shock; J96.01 - Acute respiratory failure with hypoxia Code(s): A41.9 - Sepsis, unspecified organism Status: Acute Assessment and Plan: -----noted on exam with tachycardia, tachypnea, and leucopenia. Source of sepsis appears to be due to COVID-19. Blood cultures no growth to date and UA appears to be contaminated (6) Elevated liver enzymes: Code(s): R74.8 - Abnormal levels of other serum enzymes Status: Acute Assessment and Plan: ------improving. May be secondary to COVID-19 vs. fatty liver disease. Monitor LFTs. hepatitis screen negative. CT of the chest did show hepatic steatosis (7) Type 2 diabetes mellitus: Qualifiers: Diabetes mellitus medical terminologist insulin use: without medical terminologist use Diabetes mellitus complication status: without complication Qualified Code(s): E11.9 - Type 2 diabetes mellitus without complications Code(s): E11.9 - Type 2 diabetes mellitus without complications Status: Chronic Assessment and Plan: ------last glucose 236. continue lantus (increased to 12u 07/08, high scale SSI, and Jasmeet going to see if she can bring her jardiance in home from. Continue Accuchecks, SSI coverage, hypoglycemic protocol. (8) GERD (gastroesophageal reflux disease): Qualifiers: Esophagitis presence: without esophagitis Qualified Code(s): K21.9 - Gastro-esophageal reflux disease without esophagitis Code(s): K21.9 - Gastro-esophageal reflux disease without esophagitis Status: Acute Assessment and Plan: Continue Protonix. Additional Plan Subjective Date/time seen: 07/08/20 14:24 Interval history: Pt is a 40-year-old female here for COVID-19 pneumonia. Patient was seen today and states she is feeling better than the last few days. Her appetite is getting better by the day and her diarrhea has resolved. She still cannot taste much. Acorrding to the RN, she got a little hypoxic during her bed bath but overall is feeling better. She still feels congested in her chest and having sputum production. Exam Narrative: Exam Narrative: General: Well developed well nourished patient in NAD HEENT: normocephalic Neck: supple Neuro: Alert and oriented x4 CV: RRR Resp: More deep breathing on exam and able to speak in
[2020-07-08 15:36] LABS: Pneumococcal Antigen Urine Not Detected (Not Detected)
[2020-07-08 17:32] LABS: Glucose Point of Care 326 (65-105)
[2020-07-08 20:21] LABS: Glucose Point of Care 262 (65-105)
[2020-07-08] MEDS: INSULIN GLARGINE (*BKC) 100 UNITS/ML 12 UNITS SUB-Q (20:27)
[2020-07-09] VITALS (20 sets, daily range): BP systolic 94–109; BP diastolic 59–70; PULSE 53–87; RESP 19–34; TEMP 36.2–36.8; O2SAT 88–96
[2020-07-09] MEDS: HYDROcodone/acetaminophen (*CRX) 5-325 MG TABLET 1 TAB PO ×3 (04:55→23:34)
[2020-07-09] MEDS: ALPRAZolam (*CRX) 0.25 MG TABLET PO ×3 (04:55→20:30)
[2020-07-09 05:29] LABS: Hemoglobin 14.5 g/dL (12.0-15.0); Mean Corpuscular Hemoglobin 28.6 pg (26-34); Mean Corpuscular Volume 86.8 fl (80-100); Mean Platelet Volume 11.2 fl (7.4-10.4); Platelet Count Result 263 k/mm3 (150-375); Red Blood Count 5.07 M/mm3 (4.2-5.4); Red Cell Distribution Width 13.2 % (11.5-14.5); White Blood Count 7.7 K/mm3 (4.5-10.0)
[2020-07-09 05:54] LABS: Alanine Aminotransferase 70 U/L (4-35); Albumin Level 3.4 g/dL (3.5-5.1); Alkaline Phosphatase 63 U/L (38-126); Anion Gap 6 mmol/L (8-16); Aspartate Amino Transferase 47 U/L (14-36); Bilirubin,Total 0.6 mg/dL (0.2-1.3); Blood Urea Nitrogen 16 mg/dL (7-17); CRP 4.8 mg/dL (<1.0); Carbon Dioxide 34 mmol/L (22-30); Chloride 94 mmol/L (98-107); Estimated CRCL calculation 144 ml/min; Estimated Glomerular Filt Rate > 60; Glucose 195 mg/dL (65-105); Potassium 3.7 mmol/L (3.4-5.0); Sodium 134 mmol/L (137-145)
[2020-07-09] MEDS: ENOXAPARIN 40 MG/0.4 ML SYRINGE SUB-Q ×2 (08:09→20:32)
[2020-07-09] MEDS: DEXAMETHASONE 2 MG TABLET 6 MG PO (08:09)
[2020-07-09] MEDS: guaiFENesin 12 HR 600 MG TABCR PO (08:10)
[2020-07-09] MEDS: PANTOPRAZOLE 40 MG TABLET PO (08:10)
[2020-07-09] MEDS: ALBUTEROL SULFATE (*SP) AEROSOL 1 PUFF 6 PUFF INHALATION ×4 (08:20→20:23)
[2020-07-09 08:26] LABS: Glucose Point of Care 163 (65-105)
[2020-07-09 11:19] LABS: Glucose Point of Care 188 (65-105)
--- NOTE | 2020-07-09 12:50 | PM.IMPN ---
Progress Note: A&P Assessment and Plan (1) Pneumonia due to COVID-19 virus: Code(s): U07.1 - COVID-19; J12.89 - Other viral pneumonia Status: Acute Assessment and Plan: -----patient is on airvo and is satting between 90% and 93% but drops to the 80s when talking or moving. She is currently on o2 55L/min with FIO2 of 75%. She recieved plasma 07/08/20. She becomes hypoxic with any movement so she is on bed rest at this time. She is coughing up sputum and feels congested still--sputum pending. Remdesivir c/i due to high liver counts but is on the dexamethasone. Continue airvo therapy and dexamethasone at this time. We discussed the plan of care which includes intubation if she gets any worse. Continue Lovenox 40 mg q.12. Her bp has been lower today but pt resports feeling better. She is drinking and no signs of worsening infection or 2ndary bacteria infection at this time. monitor closely. (2) Acute respiratory failure with hypoxia: Code(s): J96.01 - Acute respiratory failure with hypoxia Status: Acute Assessment and Plan: -----secondary to above (3) Pneumonia: Code(s): J18.9 - Pneumonia, unspecified organism Status: Acute Assessment and Plan: -----see above. Influenza negative (4) Suspected 2019 novel coronavirus infection: Code(s): Z20.828 - Contact with and (suspected) exposure to other viral communicable diseases Status: Acute (5) Sepsis: Qualifiers: Sepsis type: sepsis due to unspecified organism Sepsis acute organ dysfunction status: with acute organ dysfunction Severe sepsis acute organ dysfunction type: acute respiratory failure Acute respiratory failure type: with hypoxia Severe sepsis shock status: without septic shock Qualified Code(s): A41.9 - Sepsis, unspecified organism; R65.20 - Severe sepsis without septic shock; J96.01 - Acute respiratory failure with hypoxia Code(s): A41.9 - Sepsis, unspecified organism Status: Acute Assessment and Plan: -----noted on exam with tachycardia, tachypnea, and leucopenia. Source of sepsis appears to be due to COVID-19. Blood cultures no growth to date and UA appears to be contaminated (6) Elevated liver enzymes: Code(s): R74.8 - Abnormal levels of other serum enzymes Status: Acute Assessment and Plan: ------improving. May be secondary to COVID-19 vs. fatty liver disease. Monitor LFTs. hepatitis screen negative. CT of the chest did show hepatic steatosis (7) Type 2 diabetes mellitus: Qualifiers: Diabetes mellitus middle or intermediate school principal insulin use: without middle or intermediate school principal use Diabetes mellitus complication status: without complication Qualified Code(s): E11.9 - Type 2 diabetes mellitus without complications Code(s): E11.9 - Type 2 diabetes mellitus without complications Status: Chronic Assessment and Plan: ------last glucose 188. continue lantus (increased to 12u 07/08), high scale SSI, and I am going to see if she can bring her jardiance in home from. Continue Accuchecks, SSI coverage, hypoglycemic protocol. (8) GERD (gastroesophageal reflux disease): Qualifiers: Esophagitis presence: without esophagitis Qualified Code(s): K21.9 - Gastro-esophageal reflux disease without esophagitis Code(s): K21.9 - Gastro-esophageal reflux disease without esophagitis Status: Acute Assessment and Plan: Continue Protonix. Additional Plan Subjective Date/time seen: 07/09/20 12:50 Interval history: Pt is a 40-year-old female here for COVID-19 pneumonia. Patient was seen today and feels better than yesterday. She still cannot move or talk much without becoming hypoxic. She is eating and drinking well and has not had any additional diarrhea. She has chest pain when she coughs. No fevers since 07/07. She denies lightheadedness and dizziness. Exam Narrative: Exam Narrative: General: We
[2020-07-09 16:27] LABS: Glucose Point of Care 313 (65-105)
[2020-07-09] MEDS: INSULIN ASPART (*BKC) 100 UNITS/ML SUB-Q (17:22)
[2020-07-09] MEDS: INSULIN GLARGINE (*BKC) 100 UNITS/ML 12 UNITS SUB-Q (20:32)
[2020-07-09 20:41] LABS: Glucose Point of Care 283 (65-105)
[2020-07-10] VITALS (17 sets, daily range): BP systolic 91–112; BP diastolic 62–82; PULSE 46–81; RESP 13–35; TEMP 36.2–36.9; O2SAT 90–98; BMI 38.9
[2020-07-10 06:06] LABS: Alanine Aminotransferase 102 U/L (4-35); Albumin Level 3.3 g/dL (3.5-5.1); Alkaline Phosphatase 66 U/L (38-126); Anion Gap 4 mmol/L (8-16); Aspartate Amino Transferase 76 U/L (14-36); Bilirubin,Total 0.6 mg/dL (0.2-1.3); Blood Urea Nitrogen 18 mg/dL (7-17); CRP 2.5 mg/dL (<1.0); Carbon Dioxide 35 mmol/L (22-30); Chloride 95 mmol/L (98-107); Estimated CRCL calculation 144 ml/min; Estimated Glomerular Filt Rate > 60; Glucose 195 mg/dL (65-105); Lactate Dehydrogenase 761 U/L (313-618); Potassium 3.5 mmol/L (3.4-5.0); Sodium 134 mmol/L (137-145)
[2020-07-10 06:09] LABS: Hematocrit 42.7 % (37.0-47.0); Hemoglobin 14.3 g/dL (12.0-15.0); Mean Corpuscular HGB Conc 33.5 g/dl (32-36); Mean Corpuscular Hemoglobin 28.3 pg (26-34); Mean Corpuscular Volume 84.6 fl (80-100); Mean Platelet Volume 11.2 fl (7.4-10.4); Platelet Count Result 297 k/mm3 (150-375); Red Blood Count 5.05 M/mm3 (4.2-5.4); White Blood Count 10.8 K/mm3 (4.5-10.0)
[2020-07-10 06:18] LABS: D Dimer 0.46 ug/mL (<0.48)
[2020-07-10] MEDS: DEXAMETHASONE 2 MG TABLET 6 MG PO (08:14)
[2020-07-10] MEDS: PANTOPRAZOLE 40 MG TABLET PO (08:14)
[2020-07-10] MEDS: ENOXAPARIN 40 MG/0.4 ML SYRINGE SUB-Q ×2 (08:14→21:07)
[2020-07-10 08:19] LABS: Glucose Point of Care 159 (65-105)
[2020-07-10] MEDS: ALBUTEROL SULFATE (*SP) AEROSOL 1 PUFF 6 PUFF INHALATION ×3 (08:45→20:10)
[2020-07-10] MEDS: ALPRAZolam (*CRX) 0.25 MG TABLET PO ×2 (09:28→21:06)
[2020-07-10] MEDS: INSULIN ASPART (*BKC) 100 UNITS/ML SUB-Q ×2 (12:23→17:12)
[2020-07-10 12:32] LABS: Glucose Point of Care 270 (65-105)
--- NOTE | 2020-07-10 16:05 | PM.IMPN ---
Progress Note: A&P Assessment and Plan (1) Pneumonia due to COVID-19 virus: Code(s): U07.1 - COVID-19; J12.89 - Other viral pneumonia Status: Acute Assessment and Plan: -----patient is on airvo and is satting between 90% and 93% but drops to the 80s when talking or moving. She is currently on o2 55L/min with FIO2 of 60%. She recieved plasma 07/08/20. . She is coughing up sputum and feels congested still--sputum pending. Remdesivir c/i due to high liver counts but is on the dexamethasone 02/28.. Continue airvo therapy and dexamethasone at this time. Continue Lovenox 40 mg q.12. Her bp has been lower today but pt resports feeling better. She is drinking and no signs of worsening infection or 2ndary bacteria infection at this time. inflammatory markers are slowly falling (2) Acute respiratory failure with hypoxia: Code(s): J96.01 - Acute respiratory failure with hypoxia Status: Acute Assessment and Plan: -----secondary to above (3) Pneumonia: Code(s): J18.9 - Pneumonia, unspecified organism Status: Acute Assessment and Plan: -----see above. Influenza negative (4) Suspected 2019 novel coronavirus infection: Code(s): Z20.828 - Contact with and (suspected) exposure to other viral communicable diseases Status: Acute Assessment and Plan: positive as above (5) Sepsis: Qualifiers: Sepsis type: sepsis due to unspecified organism Sepsis acute organ dysfunction status: with acute organ dysfunction Severe sepsis acute organ dysfunction type: acute respiratory failure Acute respiratory failure type: with hypoxia Severe sepsis shock status: without septic shock Qualified Code(s): A41.9 - Sepsis, unspecified organism; R65.20 - Severe sepsis without septic shock; J96.01 - Acute respiratory failure with hypoxia Code(s): A41.9 - Sepsis, unspecified organism Status: Acute Assessment and Plan: -----noted on exam with tachycardia, tachypnea, and leucopenia. Source of sepsis appears to be due to COVID-19. Blood cultures no growth to date and UA appears to be contaminated (6) Elevated liver enzymes: Code(s): R74.8 - Abnormal levels of other serum enzymes Status: Acute Assessment and Plan: ------improving. May be secondary to COVID-19 vs. fatty liver disease. Monitor LFTs. hepatitis screen negative. CT of the chest did show hepatic steatosis and LFTs are falling (7) Type 2 diabetes mellitus: Qualifiers: Diabetes mellitus termite inspector insulin use: without termite inspector use Diabetes mellitus complication status: without complication Qualified Code(s): E11.9 - Type 2 diabetes mellitus without complications Code(s): E11.9 - Type 2 diabetes mellitus without complications Status: Chronic Assessment and Plan: ------last glucose 195. continue lantus (increased to 15u 07/10), high scale SSI,. (8) GERD (gastroesophageal reflux disease): Qualifiers: Esophagitis presence: without esophagitis Qualified Code(s): K21.9 - Gastro-esophageal reflux disease without esophagitis Code(s): K21.9 - Gastro-esophageal reflux disease without esophagitis Status: Acute Assessment and Plan: Continue Protonix. Subjective Date/time seen: 07/10/20 16:05 Interval history: Datea of visit 07/10 Pt is a 40-year-old female here for COVID-19 pneumonia. Patient was seen today and feels better than yesterday. She still cannot move or talk much without becoming hypoxic but up to chair with PT today . She is eating and drinking well. She has chest pain when she coughs. No fevers since 07/07. She denies lightheadedness and dizziness. Exam Narrative: Exam Narrative: Blood pressure 108/72 pulse is 72 saturating 93% on FiO2 of 60% at 55 liters/minute per Airvo General: Well developed well nourished patient in NAD HEENT: normocephalic Neck: supple Neuro:
[2020-07-10 16:18] LABS: Glucose Point of Care 337 (65-105)
[2020-07-10 19:39] LABS: Glucose Point of Care 318 (65-105)
[2020-07-10] MEDS: INSULIN GLARGINE (*BKC) 100 UNITS/ML 15 UNITS SUB-Q (21:05)
[2020-07-10] MEDS: HYDROcodone/acetaminophen (*CRX) 5-325 MG TABLET 1 TAB PO (21:05)
[2020-07-11] VITALS (21 sets, daily range): BP systolic 100–113; BP diastolic 67–74; PULSE 42–84; RESP 20–36; TEMP 35.9–37.3; O2SAT 86–96
[2020-07-11] MEDS: HYDROcodone/acetaminophen (*CRX) 5-325 MG TABLET 1 TAB PO ×3 (02:48→21:09)
[2020-07-11] MEDS: ALPRAZolam (*CRX) 0.25 MG TABLET PO ×3 (02:48→21:09)
[2020-07-11 05:27] LABS: Basophils Percent Auto 0.2 % (0.2-1.2); Eosinophils Percent Auto 0.3 % (0-4.4); Hematocrit 40.7 % (37.0-47.0); Hemoglobin 13.6 g/dL (12.0-15.0); Immature Granulocyte Absolute 0.13 K/mm3 (0.00-0.031); Immature Granulocyte Percent A 1.1 % (0-0.5); Lymphocytes Absolute Auto 2.08 K/mm3 (0.9-3.2); Lymphocytes Percent Auto 17.4 % (18.3-44.2); Mean Corpuscular HGB Conc 33.4 g/dl (32-36); Mean Corpuscular Hemoglobin 28.2 pg (26-34); Mean Corpuscular Volume 84.4 fl (80-100); Monocytes Absolute Auto 0.9 K/mm3 (0.1-0.6); Monocytes Percent Auto 7.5 % (2.6-8.5); Neutrophils Absolute Auto 8.8 K/mm3 (1.3-6.7); Neutrophils Percent Auto 73.5 % (45.5-73.1); Platelet Count Result 322 k/mm3 (150-375); Red Blood Count 4.82 M/mm3 (4.2-5.4); Red Cell Distribution Width 12.9 % (11.5-14.5); White Blood Count 11.9 K/mm3 (4.5-10.0)
[2020-07-11 05:45] LABS: Alanine Aminotransferase 157 U/L (4-35); Albumin Level 3.1 g/dL (3.5-5.1); Alkaline Phosphatase 63 U/L (38-126); Anion Gap 3 mmol/L (8-16); Aspartate Amino Transferase 95 U/L (14-36); Bilirubin,Total 0.7 mg/dL (0.2-1.3); Blood Urea Nitrogen 14 mg/dL (7-17); CRP 2.9 mg/dL (<1.0); Calcium 8.8 mg/dL (8.4-10.2); Carbon Dioxide 34 mmol/L (22-30); Chloride 97 mmol/L (98-107); D Dimer 0.34 ug/mL (<0.48); Estimated CRCL calculation 144 ml/min; Estimated Glomerular Filt Rate > 60; Glucose 191 mg/dL (65-105); Lactate Dehydrogenase 739 U/L (313-618); Potassium 3.4 mmol/L (3.4-5.0); Sodium 134 mmol/L (137-145)
[2020-07-11] MEDS: ALBUTEROL SULFATE (*SP) AEROSOL 1 PUFF 6 PUFF INHALATION ×5 (09:10→20:39)
[2020-07-11 09:27] LABS: Glucose Point of Care 141 (65-105)
[2020-07-11] MEDS: guaiFENesin 12 HR 600 MG TABCR PO ×2 (09:37→20:27)
[2020-07-11] MEDS: POTASSIUM CHLORIDE 20 MEQ TABLET 40 MEQ PO (09:38)
[2020-07-11] MEDS: DEXAMETHASONE 2 MG TABLET 6 MG PO (09:40)
[2020-07-11] MEDS: ENOXAPARIN 40 MG/0.4 ML SYRINGE SUB-Q ×2 (09:40→20:27)
[2020-07-11] MEDS: PANTOPRAZOLE 40 MG TABLET PO (09:40)
[2020-07-11 14:29] LABS: Glucose Point of Care 188 (65-105)
[2020-07-11] MEDS: INSULIN ASPART (*BKC) 100 UNITS/ML SUB-Q (17:27)
--- NOTE | 2020-07-11 18:01 | PM.IMPN ---
Progress Note: A&P Assessment and Plan (1) Pneumonia due to COVID-19 virus: Code(s): U07.1 - COVID-19; J12.89 - Other viral pneumonia Status: Acute Assessment and Plan: -----patient is on airvo and is satting between 90% and 93% but drops to the 80s when talking or moving. She is currently on o2 50L/min with FIO2 of 55%. She recieved plasma 07/08/20. . She is coughing up sputum and feels congested still--sputum pending. Remdesivir c/i due to high liver counts but is on the dexamethasone 03/30.. Continue airvo therapy and dexamethasone at this time. Continue Lovenox 40 mg q.12. Her bp has been lower today but pt resports feeling better. She is drinking and no signs of worsening infection or 2ndary bacteria infection at this time. inflammatory markers are stable to slowly falling (2) Acute respiratory failure with hypoxia: Code(s): J96.01 - Acute respiratory failure with hypoxia Status: Acute Assessment and Plan: -----secondary to above (3) Pneumonia: Code(s): J18.9 - Pneumonia, unspecified organism Status: Acute Assessment and Plan: -----see above. Influenza negative (4) Suspected 2019 novel coronavirus infection: Code(s): Z20.828 - Contact with and (suspected) exposure to other viral communicable diseases Status: Acute Assessment and Plan: positive as above (5) Sepsis: Qualifiers: Sepsis type: sepsis due to unspecified organism Sepsis acute organ dysfunction status: with acute organ dysfunction Severe sepsis acute organ dysfunction type: acute respiratory failure Acute respiratory failure type: with hypoxia Severe sepsis shock status: without septic shock Qualified Code(s): A41.9 - Sepsis, unspecified organism; R65.20 - Severe sepsis without septic shock; J96.01 - Acute respiratory failure with hypoxia Code(s): A41.9 - Sepsis, unspecified organism Status: Acute Assessment and Plan: -----noted on exam with tachycardia, tachypnea, and leucopenia. Source of sepsis appears to be due to COVID-19. Blood cultures no growth to date and UA appears to be contaminated (6) Elevated liver enzymes: Code(s): R74.8 - Abnormal levels of other serum enzymes Status: Acute Assessment and Plan: ------improving. May be secondary to COVID-19 vs. fatty liver disease. Monitor LFTs. hepatitis screen negative. CT of the chest did show hepatic steatosis and LFTs are falling (7) Type 2 diabetes mellitus: Qualifiers: Diabetes mellitus termite inspector insulin use: without termite inspector use Diabetes mellitus complication status: without complication Qualified Code(s): E11.9 - Type 2 diabetes mellitus without complications Code(s): E11.9 - Type 2 diabetes mellitus without complications Status: Chronic Assessment and Plan: ------last glucose still 190s . continue lantus (increased to 20u 07/11), high scale SSI,. (8) GERD (gastroesophageal reflux disease): Qualifiers: Esophagitis presence: without esophagitis Qualified Code(s): K21.9 - Gastro-esophageal reflux disease without esophagitis Code(s): K21.9 - Gastro-esophageal reflux disease without esophagitis Status: Acute Assessment and Plan: Continue Protonix. Subjective Date/time seen: 07/11/20 18:01 Interval history: Date of visit 07/11 Pt is a 40-year-old female here for COVID-19 pneumonia. Patient was seen today and feels better than yesterday. She still cannot move or talk much without becoming hypoxic but up to chair with PT again today . She is eating and drinking well. She has chest pain when she coughs. No fevers since 07/07. She denies lightheadedness and dizziness. Exam Narrative: Exam Narrative: Blood pressure 114/74 pulse is 72 saturating 93% on FiO2 of 55% at 50 liters/minute per Airvo General: Well developed well nourished patient in NAD HEENT: normocephal
[2020-07-11 18:11] LABS: Glucose Point of Care 343 (65-105)
[2020-07-11 18:50] LABS: Legionella pneumophila Ag Ur Not Detected (Not Detected)
[2020-07-11] MEDS: INSULIN GLARGINE (*BKC) 100 UNITS/ML 20 UNITS SUB-Q (20:26)
[2020-07-11 20:37] LABS: Glucose Point of Care 321 (65-105)
[2020-07-12] VITALS (15 sets, daily range): BP systolic 113–117; BP diastolic 69–80; PULSE 46–96; RESP 15–25; TEMP 36–36.7; O2SAT 91–97
[2020-07-12] MEDS: ALPRAZolam (*CRX) 0.25 MG TABLET PO ×2 (04:30→20:20)
[2020-07-12] MEDS: HYDROcodone/acetaminophen (*CRX) 5-325 MG TABLET 1 TAB PO ×2 (04:30→20:20)
[2020-07-12 04:57] LABS: Basophils Percent Auto 0.1 % (0.2-1.2); Eosinophils Percent Auto 0.3 % (0-4.4); Hematocrit 42.5 % (37.0-47.0); Hemoglobin 13.9 g/dL (12.0-15.0); Immature Granulocyte Absolute 0.21 K/mm3 (0.00-0.031); Immature Granulocyte Percent A 1.9 % (0-0.5); Lymphocytes Percent Auto 14.9 % (18.3-44.2); Mean Corpuscular HGB Conc 32.7 g/dl (32-36); Mean Corpuscular Hemoglobin 28.6 pg (26-34); Mean Corpuscular Volume 87.4 fl (80-100); Mean Platelet Volume 10.9 fl (7.4-10.4); Monocytes Absolute Auto 0.7 K/mm3 (0.1-0.6); Monocytes Percent Auto 6.8 % (2.6-8.5); Neutrophils Absolute Auto 8.2 K/mm3 (1.3-6.7); Platelet Count Result 329 k/mm3 (150-375); Red Blood Count 4.86 M/mm3 (4.2-5.4); White Blood Count 10.8 K/mm3 (4.5-10.0)
[2020-07-12 05:11] LABS: Alanine Aminotransferase 169 U/L (4-35); Albumin Level 3.3 g/dL (3.5-5.1); Alkaline Phosphatase 69 U/L (38-126); Anion Gap 5 mmol/L (8-16); Aspartate Amino Transferase 62 U/L (14-36); Bilirubin,Total 0.6 mg/dL (0.2-1.3); Blood Urea Nitrogen 13 mg/dL (7-17); CRP 6.8 mg/dL (<1.0); Carbon Dioxide 30 mmol/L (22-30); Chloride 100 mmol/L (98-107); Estimated CRCL calculation 144 ml/min; Estimated Glomerular Filt Rate > 60; Glucose 243 mg/dL (65-105); Lactate Dehydrogenase 620 U/L (313-618); Magnesium 2.1 mg/dL (1.6-2.3); Potassium 4.1 mmol/L (3.4-5.0); Sodium 135 mmol/L (137-145)
[2020-07-12 05:34] LABS: D Dimer < 0.22 ug/mL (<0.48)
[2020-07-12] MEDS: INSULIN ASPART (*BKC) 100 UNITS/ML SUB-Q ×3 (08:30→17:34)
[2020-07-12] MEDS: ENOXAPARIN 40 MG/0.4 ML SYRINGE SUB-Q ×2 (08:30→20:19)
[2020-07-12] MEDS: PANTOPRAZOLE 40 MG TABLET PO (08:30)
[2020-07-12] MEDS: DEXAMETHASONE 2 MG TABLET 6 MG PO (08:30)
[2020-07-12] MEDS: guaiFENesin 12 HR 600 MG TABCR PO ×2 (08:33→20:20)
[2020-07-12 08:39] LABS: Glucose Point of Care 203 (65-105)
[2020-07-12] MEDS: ALBUTEROL SULFATE (*SP) AEROSOL 1 PUFF 6 PUFF INHALATION ×4 (08:44→20:25)
--- NOTE | 2020-07-12 11:14 | PCDIET ---
Nutrition Follow-Up Complete: Nutrition Diagnosis: Inadequate oral intake related to decreased appetite and taste as evidenced by intake records. Nutrition Goal: Patient to consume 50% of meals/supplements or greater Goal in progress. Spoke with patient via phone due to COVID-19 precautions. Patient reports appetite is coming back with average intake of 80% of meals on 07/11/20. Patient likes Glucerna Shake and would like to continue to receive for the time being. No GI c/o or concerns. No new recommendations at this time; however, if intake remain 75% or greater, would discontinue Glucerna Shake to optimize glucose control and prevent weight gain. Last recorded weight is 102.8 kg. Recommend obtaining new weight. Bowel Motility: Last documented BM on 07/11/20 x 1. Labs Reviewed: Glu (243), Cr (0.5), Na (135), Alb (3.3) Meds Noted: [place], Albuterol, Dexamethasone, Novolog, Lantus, Protonix Additional Notes: Maceration to left buttock documented without other skin breakdown. Will continue to monitor with same goal. Nutrition Monitoring and Evaluation: Follow up every 5 days.
[2020-07-12 12:00] LABS: Glucose Point of Care 322 (65-105)
--- NOTE | 2020-07-12 16:46 | PM.IMPN ---
Progress Note: A&P Assessment and Plan (1) Pneumonia due to COVID-19 virus: Code(s): U07.1 - COVID-19; J12.89 - Other viral pneumonia Status: Acute Assessment and Plan: -----patient is on airvo and is satting between 90% and 93% but drops to the 80s when talking or moving. She is currently on o2 50L/min with FIO2 of 60%. She recieved plasma 07/08/20. . She is coughing up sputum and feels congested still--sputum pending. Remdesivir c/i due to high liver counts but is on the dexamethasone 04/30.. Continue airvo therapy and dexamethasone at this time. Continue Lovenox 40 mg q.12. Her bp has been lower today but pt resports feeling better. She is drinking and no signs of worsening infection or 2ndary bacteria infection at this time. inflammatory markers are stable to slowly falling and will repeat again 48 hours (2) Acute respiratory failure with hypoxia: Code(s): J96.01 - Acute respiratory failure with hypoxia Status: Acute Assessment and Plan: -----secondary to above (3) Pneumonia: Code(s): J18.9 - Pneumonia, unspecified organism Status: Acute Assessment and Plan: -----see above. Influenza negative (4) Suspected 2019 novel coronavirus infection: Code(s): Z20.828 - Contact with and (suspected) exposure to other viral communicable diseases Status: Acute Assessment and Plan: positive as above (5) Sepsis: Qualifiers: Acute respiratory failure type: with hypoxia Sepsis acute organ dysfunction status: with acute organ dysfunction Sepsis type: sepsis due to unspecified organism Severe sepsis acute organ dysfunction type: acute respiratory failure Severe sepsis shock status: without septic shock Qualified Code(s): A41.9 - Sepsis, unspecified organism; R65.20 - Severe sepsis without septic shock; J96.01 - Acute respiratory failure with hypoxia Code(s): A41.9 - Sepsis, unspecified organism Status: Acute Assessment and Plan: -----noted on exam with tachycardia, tachypnea, and leucopenia. Source of sepsis appears to be due to COVID-19. Blood cultures no growth to date and UA appears to be contaminated (6) Elevated liver enzymes: Code(s): R74.8 - Abnormal levels of other serum enzymes Status: Acute Assessment and Plan: ------improving. May be secondary to COVID-19 vs. fatty liver disease. Monitor LFTs. hepatitis screen negative. CT of the chest did show hepatic steatosis and LFTs are falling (7) Type 2 diabetes mellitus: Qualifiers: Diabetes mellitus complication status: without complication Diabetes mellitus penitentiary insulin use: without adjunct faculty for medical terminology use Qualified Code(s): E11.9 - Type 2 diabetes mellitus without complications Code(s): E11.9 - Type 2 diabetes mellitus without complications Status: Chronic Assessment and Plan: ------last glucose still 190s . continue lantus (increased to 20u 07/11), high scale SSI,. (8) GERD (gastroesophageal reflux disease): Qualifiers: Esophagitis presence: without esophagitis Qualified Code(s): K21.9 - Gastro-esophageal reflux disease without esophagitis Code(s): K21.9 - Gastro-esophageal reflux disease without esophagitis Status: Acute Assessment and Plan: Continue Protonix. Subjective Date/time seen: 07/12/20 16:46 Interval history: Date of visit 07/12 Pt is a 40-year-old female here for COVID-19 pneumonia. Patient was seen today and feels better than yesterday but chest discomfort with cough. . She still cannot move or talk much without becoming hypoxic but up to chair with PT today . She is eating and drinking well. She has chest pain when she coughs. No fevers since 07/07. She denies lightheadedness and dizziness. Exam Narrative: Exam Narrative: Blood pressure 114/74 pulse is 72 saturating 93% on FiO2 of 55% at 50 liters/minute per Airvo General: Well
[2020-07-12 17:17] LABS: Glucose Point of Care 443 (65-105)
[2020-07-12] MEDS: INSULIN HUMAN REGULAR (*BKC) 100 UNITS/ML 25 UNITS SUB-Q (17:35)
[2020-07-12] MEDS: INSULIN GLARGINE (*BKC) 100 UNITS/ML 30 UNITS SUB-Q (20:21)
[2020-07-12 20:36] LABS: Glucose Point of Care 373 (65-105)
[2020-07-13] VITALS (14 sets, daily range): BP systolic 107–148; BP diastolic 65–85; PULSE 53–89; RESP 19–30; TEMP 36.3–36.5; O2SAT 90–96
[2020-07-13] MEDS: HYDROcodone/acetaminophen (*CRX) 5-325 MG TABLET 1 TAB PO ×2 (05:58→20:15)
[2020-07-13] MEDS: ALBUTEROL SULFATE (*SP) AEROSOL 1 PUFF 6 PUFF INHALATION ×3 (07:38→15:41)
[2020-07-13] MEDS: guaiFENesin 12 HR 600 MG TABCR PO ×2 (08:01→20:15)
[2020-07-13] MEDS: PANTOPRAZOLE 40 MG TABLET PO (08:01)
[2020-07-13] MEDS: DEXAMETHASONE 2 MG TABLET 6 MG PO (08:01)
[2020-07-13] MEDS: ENOXAPARIN 40 MG/0.4 ML SYRINGE SUB-Q ×2 (08:01→20:15)
[2020-07-13 08:40] LABS: Glucose Point of Care 103 (65-105)
[2020-07-13] MEDS: ALBUTEROL SULFATE (*SP) INHALER 1 PUFF (11:05)
[2020-07-13] MEDS: INSULIN ASPART (*BKC) 100 UNITS/ML SUB-Q ×2 (12:34→17:05)
[2020-07-13 12:43] LABS: Glucose Point of Care 316 (65-105)
--- NOTE | 2020-07-13 16:47 | PM.IMPN ---
Progress Note: A&P Assessment and Plan (1) Pneumonia due to COVID-19 virus: Code(s): U07.1 - COVID-19; J12.89 - Other viral pneumonia Status: Acute Assessment and Plan: -----patient is on airvo and is satting between 90% and 93% but drops to the 80s when moving. She is currently on o2 50L/min with FIO2 of 60%. She recieved plasma 07/08/20. . She is coughing up sputum and feels congested still. Remdesivir c/i due to elevated Lfts but is on the dexamethasone 05/31.. Continue airvo therapy and dexamethasone at this time. Continue Lovenox 40 mg q.12. Her bp has been lower today but pt feeling better. She is drinking and no signs of worsening infection or 2ndary bacteria infection at this time. inflammatory markers are stable to slowly falling and will repeat again am (2) Acute respiratory failure with hypoxia: Code(s): J96.01 - Acute respiratory failure with hypoxia Status: Acute Assessment and Plan: -----secondary to above (3) Pneumonia: Code(s): J18.9 - Pneumonia, unspecified organism Status: Acute Assessment and Plan: -----see above. Influenza negative (4) Suspected 2019 novel coronavirus infection: Code(s): Z20.828 - Contact with and (suspected) exposure to other viral communicable diseases Status: Acute Assessment and Plan: positive as above (5) Sepsis: Qualifiers: Sepsis type: sepsis due to unspecified organism Sepsis acute organ dysfunction status: with acute organ dysfunction Severe sepsis acute organ dysfunction type: acute respiratory failure Acute respiratory failure type: with hypoxia Severe sepsis shock status: without septic shock Qualified Code(s): A41.9 - Sepsis, unspecified organism; R65.20 - Severe sepsis without septic shock; J96.01 - Acute respiratory failure with hypoxia Code(s): A41.9 - Sepsis, unspecified organism Status: Acute Assessment and Plan: -----noted on exam with tachycardia, tachypnea, and leucopenia. Source of sepsis appears to be due to COVID-19. Blood cultures no growth to date and UA appears to be contaminated (6) Elevated liver enzymes: Code(s): R74.8 - Abnormal levels of other serum enzymes Status: Acute Assessment and Plan: ------improving. May be secondary to COVID-19 vs. fatty liver disease. Monitor LFTs. hepatitis screen negative. CT of the chest did show hepatic steatosis and LFTs are falling (7) Type 2 diabetes mellitus: Qualifiers: Diabetes mellitus terminal system operator insulin use: without terminal system operator use Diabetes mellitus complication status: without complication Qualified Code(s): E11.9 - Type 2 diabetes mellitus without complications Code(s): E11.9 - Type 2 diabetes mellitus without complications Status: Chronic Assessment and Plan: ------last glucose today 300 . continue lantus (increased to 35 units 07/13 hs), high scale SSI,. (8) GERD (gastroesophageal reflux disease): Qualifiers: Esophagitis presence: without esophagitis Qualified Code(s): K21.9 - Gastro-esophageal reflux disease without esophagitis Code(s): K21.9 - Gastro-esophageal reflux disease without esophagitis Status: Acute Assessment and Plan: Continue Protonix. Subjective Date/time seen: 07/13/20 16:47 Interval history: Date of visit 07/13 Pt is a 40-year-old female here for COVID-19 pneumonia. Patient was seen today and feels better than yesterday but still some chest discomfort with cough. . She still cannot move or talk much without becoming hypoxic but up to chair with PT today . She is eating and drinking well. . No fevers since 07/07. She denies lightheadedness and dizziness. Exam Narrative: Exam Narrative: Blood pressure 110/72 pulse is 82 saturating 92% on FiO2 of 60% at 50 liters/minute per Airvo General: Well developed well nourished patient in NAD HEENT: normocephali
[2020-07-13 20:03] LABS: Glucose Point of Care 350 (65-105)
[2020-07-13] MEDS: ALPRAZolam (*CRX) 0.25 MG TABLET PO (20:15)
[2020-07-13 20:28] LABS: Glucose Point of Care 382 (65-105)
[2020-07-13] MEDS: INSULIN GLARGINE (*BKC) 100 UNITS/ML 35 UNITS SUB-Q (20:35)
[2020-07-14] VITALS (13 sets, daily range): BP systolic 102–124; BP diastolic 70–85; PULSE 42–95; RESP 20–30; TEMP 35.9–36.9; O2SAT 90–98
[2020-07-14 06:00] LABS: Basophils Percent Auto 0.3 % (0.2-1.2); Eosinophils Absolute Auto 0.2 K/mm3 (0-0.3); Eosinophils Percent Auto 1.1 % (0-4.4); Hematocrit 44.1 % (37.0-47.0); Hemoglobin 14.2 g/dL (12.0-15.0); Immature Granulocyte Absolute 0.22 K/mm3 (0.00-0.031); Immature Granulocyte Percent A 1.6 % (0-0.5); Lymphocytes Absolute Auto 2.41 K/mm3 (0.9-3.2); Lymphocytes Percent Auto 17.9 % (18.3-44.2); Mean Corpuscular HGB Conc 32.2 g/dl (32-36); Mean Corpuscular Hemoglobin 27.7 pg (26-34); Monocytes Percent Auto 7.6 % (2.6-8.5); Neutrophils Absolute Auto 9.6 K/mm3 (1.3-6.7); Neutrophils Percent Auto 71.5 % (45.5-73.1); Platelet Count Result 439 k/mm3 (150-375); Red Blood Count 5.13 M/mm3 (4.2-5.4); White Blood Count 13.5 K/mm3 (4.5-10.0)
[2020-07-14 06:27] LABS: Alanine Aminotransferase 174 U/L (4-35); Albumin Level 3.5 g/dL (3.5-5.1); Alkaline Phosphatase 69 U/L (38-126); Anion Gap 7 mmol/L (8-16); Aspartate Amino Transferase 60 U/L (14-36); Bilirubin,Total 0.7 mg/dL (0.2-1.3); Blood Urea Nitrogen 15 mg/dL (7-17); Calcium 9.7 mg/dL (8.4-10.2); Carbon Dioxide 31 mmol/L (22-30); Chloride 98 mmol/L (98-107); Estimated CRCL calculation 144 ml/min; Estimated Glomerular Filt Rate > 60; Glucose 218 mg/dL (65-105); Lactate Dehydrogenase 649 U/L (313-618); Magnesium 2.1 mg/dL (1.6-2.3); Potassium 4.3 mmol/L (3.4-5.0); Sodium 136 mmol/L (137-145)
[2020-07-14 06:50] LABS: D Dimer 0.52 ug/mL (<0.48)
[2020-07-14 07:16] LABS: Vitamin D 25 Hydroxy 15.9 ng/mL
[2020-07-14] MEDS: ALBUTEROL SULFATE (*SP) AEROSOL 1 PUFF 6 PUFF INHALATION ×4 (08:28→20:38)
[2020-07-14] MEDS: INSULIN ASPART (*BKC) 100 UNITS/ML SUB-Q ×3 (08:30→17:26)
[2020-07-14] MEDS: ENOXAPARIN 40 MG/0.4 ML SYRINGE SUB-Q ×2 (08:31→21:58)
[2020-07-14] MEDS: guaiFENesin 12 HR 600 MG TABCR PO ×2 (08:31→21:58)
[2020-07-14] MEDS: DEXAMETHASONE 2 MG TABLET 6 MG PO (08:31)
[2020-07-14] MEDS: PANTOPRAZOLE 40 MG TABLET PO (08:31)
[2020-07-14 12:36] LABS: Glucose Point of Care 318 (65-105)
--- NOTE | 2020-07-14 14:19 | PM.IMPN ---
Progress Note: A&P Assessment and Plan (1) Pneumonia due to COVID-19 virus: Code(s): U07.1 - COVID-19; J12.89 - Other viral pneumonia Status: Acute Assessment and Plan: -----patient is on NC now at 8L weaned off of high flow. She recieved plasma 07/08/20. . She is coughing up sputum and feels less congested l. Remdesivir c/i due to elevated Lfts but is on the dexamethasone 06/30.. Continue Lovenox 40 mg q.12. Her bp has been lower today but pt feeling better. She is drinking and no signs of worsening infection or 2ndary bacteria infection at this time. inflammatory markers are stable to slowly falling (2) Acute respiratory failure with hypoxia: Code(s): J96.01 - Acute respiratory failure with hypoxia Status: Acute Assessment and Plan: -----secondary to above (3) Pneumonia: Code(s): J18.9 - Pneumonia, unspecified organism Status: Acute Assessment and Plan: -----see above. Influenza negative (4) Suspected 2019 novel coronavirus infection: Code(s): Z20.828 - Contact with and (suspected) exposure to other viral communicable diseases Status: Acute Assessment and Plan: positive as above (5) Sepsis: Qualifiers: Sepsis type: sepsis due to unspecified organism Sepsis acute organ dysfunction status: with acute organ dysfunction Severe sepsis acute organ dysfunction type: acute respiratory failure Acute respiratory failure type: with hypoxia Severe sepsis shock status: without septic shock Qualified Code(s): A41.9 - Sepsis, unspecified organism; R65.20 - Severe sepsis without septic shock; J96.01 - Acute respiratory failure with hypoxia Code(s): A41.9 - Sepsis, unspecified organism Status: Acute Assessment and Plan: -----noted on exam with tachycardia, tachypnea, and leucopenia. Source of sepsis appears to be due to COVID-19. Blood cultures no growth to date and UA appears to be contaminated (6) Elevated liver enzymes: Code(s): R74.8 - Abnormal levels of other serum enzymes Status: Acute Assessment and Plan: ------improving. May be secondary to COVID-19 vs. fatty liver disease. Monitor LFTs. hepatitis screen negative. CT of the chest did show hepatic steatosis and LFTs are falling (7) Type 2 diabetes mellitus: Qualifiers: Diabetes mellitus technician terminal and repeater insulin use: without nursing home use Diabetes mellitus complication status: without complication Qualified Code(s): E11.9 - Type 2 diabetes mellitus without complications Code(s): E11.9 - Type 2 diabetes mellitus without complications Status: Chronic Assessment and Plan: ------last glucose today 218 . continue lantus (increased to 35 units 07/13 hs), high scale SSI,. last day of steroids and BS should improve (8) GERD (gastroesophageal reflux disease): Qualifiers: Esophagitis presence: without esophagitis Qualified Code(s): K21.9 - Gastro-esophageal reflux disease without esophagitis Code(s): K21.9 - Gastro-esophageal reflux disease without esophagitis Status: Acute Assessment and Plan: Continue Protonix. Subjective Date/time seen: 07/14/20 14:19 Interval history: Date of visit 07/14 Pt is a 40-year-old female here for COVID-19 pneumonia. Patient was seen today and feels much better than yesterday. .Moving better and down to 8 L NC . She is eating and drinking well. . No fevers since 07/07. She denies lightheadedness and dizziness. Exam Narrative: Exam Narrative: Blood pressure 102/84 pulse is 80 saturating 93% on 8L NC General: Well developed well nourished patient in NAD HEENT: normocephalic Neck: supple Neuro: Alert and oriented x4 CV: RRR Resp: More deep breathing on exam and able to speak in full sentences without dyspnea . Faint left post basal crackle Abd: Soft, non distended. No pain to palpation. Positive bowel sounds Ext
[2020-07-14] MEDS: ERGOCALCIFEROL 50,000 UNIT CAPSULE 50000 UNITS PO (14:36)
--- NOTE | 2020-07-14 15:07 | PCPTNOTE ---
The patient treatment was not able to be completed today. Upon entering room patient states she is feeling much better today. Patient states she has been up in chair for several hours and has transferred to and from chair to commode without assist. Patient feels that therapy is not needed at this time. Will plan to continue treatment per plan of care.
[2020-07-14 18:07] LABS: Glucose Point of Care 393 (65-105)
--- NOTE | 2020-07-14 21:37 | PC.NURSE ---
This patient, Sanjuanita Tang, was transferred to [facility] on 07/14/20 at 2132. Personal belongings sent with patient. Report given to SADIA Glover. Appropriate documentation sent with patient.
[2020-07-14] MEDS: HYDROcodone/acetaminophen (*CRX) 5-325 MG TABLET 1 TAB PO (21:57)
[2020-07-14] MEDS: ALPRAZolam (*CRX) 0.25 MG TABLET PO (21:57)
[2020-07-14] MEDS: INSULIN GLARGINE (*BKC) 100 UNITS/ML 35 UNITS SUB-Q (21:58)
[2020-07-14 22:08] LABS: Glucose Point of Care 400 (65-105)
--- NOTE | 2020-07-14 22:25 | PC.NURSE ---
This patient, Sanjuanita Tang, was received from [ ICU] on 07/14/20 at 2145. Personal belongings list checked and signed. Patient/family oriented to unit policies and routines
--- NOTE | 2020-07-14 23:05 | PC.NURSE ---
Nurse Lucia Rhodes assumed care of patient at 1900 on 07/14/2020. All charting from [id number] on 07/14/2020 was mistakenly charted under a different user, Nevin Valencia. This charting was meant to be under user, Lucia Rhodes.
[2020-07-15] VITALS (10 sets, daily range): BP systolic 97–133; BP diastolic 53–79; PULSE 59–103; RESP 20–22; TEMP 35.9–36.9; O2SAT 91–95
[2020-07-15] MEDS: ALBUTEROL SULFATE (*SP) AEROSOL 1 PUFF 6 PUFF INHALATION ×5 (07:17→20:32)
[2020-07-15] MEDS: ENOXAPARIN 40 MG/0.4 ML SYRINGE SUB-Q ×2 (08:44→20:34)
[2020-07-15] MEDS: PANTOPRAZOLE 40 MG TABLET PO (08:44)
[2020-07-15] MEDS: guaiFENesin 12 HR 600 MG TABCR PO ×2 (08:44→20:34)
[2020-07-15 10:21] LABS: Glucose Point of Care 170 (65-105)
--- NOTE | 2020-07-15 12:07 | PCPTNOTE ---
Patient declined treatment this session due to fatigue. Patient states she had a rough nigth and did not sleep well. Patient states that she would like to get some sleep today. Patient requested therapy return tomorrow. PT will continue to follow per plan of care. [ ]
[2020-07-15] MEDS: INSULIN ASPART (*BKC) 100 UNITS/ML SUB-Q ×2 (12:28→17:54)
[2020-07-15 12:37] LABS: Glucose Point of Care 267 (65-105)
--- NOTE | 2020-07-15 17:24 | PM.IMPN ---
Progress Note: A&P Assessment and Plan (1) Pneumonia due to COVID-19 virus: Code(s): U07.1 - COVID-19; J12.89 - Other viral pneumonia Status: Acute Assessment and Plan: -----patient is on NC now at 8L weaned off of high flow. She recieved plasma 07/08/20. . She is coughing up sputum and feels less congested l. Remdesivir c/i due to elevated Lfts finished dexamethasone 06/30, 07/14 .. Continue Lovenox 40 mg q.12. Her bp has been lower today but pt feeling better. She is drinking and no signs of worsening infection or 2ndary bacteria infection at this time. inflammatory markers are stable to slowly falling and repeat am If no improvement 07/16 will try dose of IV lasix (2) Acute respiratory failure with hypoxia: Code(s): J96.01 - Acute respiratory failure with hypoxia Status: Acute Assessment and Plan: -----secondary to above (3) Pneumonia: Code(s): J18.9 - Pneumonia, unspecified organism Status: Acute Assessment and Plan: -----see above. Influenza negative (4) Suspected 2019 novel coronavirus infection: Code(s): Z20.828 - Contact with and (suspected) exposure to other viral communicable diseases Status: Acute Assessment and Plan: positive as above (5) Sepsis: Qualifiers: Sepsis type: sepsis due to unspecified organism Sepsis acute organ dysfunction status: with acute organ dysfunction Severe sepsis acute organ dysfunction type: acute respiratory failure Acute respiratory failure type: with hypoxia Severe sepsis shock status: without septic shock Qualified Code(s): A41.9 - Sepsis, unspecified organism; R65.20 - Severe sepsis without septic shock; J96.01 - Acute respiratory failure with hypoxia Code(s): A41.9 - Sepsis, unspecified organism Status: Acute Assessment and Plan: -----noted on exam with tachycardia, tachypnea, and leucopenia. Source of sepsis appears to be due to COVID-19. Blood cultures no growth to date and UA appears to be contaminated (6) Elevated liver enzymes: Code(s): R74.8 - Abnormal levels of other serum enzymes Status: Acute Assessment and Plan: ------improving. May be secondary to COVID-19 vs. fatty liver disease. Monitor LFTs. hepatitis screen negative. CT of the chest did show hepatic steatosis and LFTs are falling and recheck am (7) Type 2 diabetes mellitus: Qualifiers: Diabetes mellitus mcfp insulin use: without mcfp use Diabetes mellitus complication status: without complication Qualified Code(s): E11.9 - Type 2 diabetes mellitus without complications Code(s): E11.9 - Type 2 diabetes mellitus without complications Status: Chronic Assessment and Plan: FBS 170 today . continue lantus (increased to 35 units 07/13 hs), high scale SSI,. last day of steroids 07/14 and BS should improve . restart metformin also today (8) GERD (gastroesophageal reflux disease): Qualifiers: Esophagitis presence: without esophagitis Qualified Code(s): K21.9 - Gastro-esophageal reflux disease without esophagitis Code(s): K21.9 - Gastro-esophageal reflux disease without esophagitis Status: Acute Assessment and Plan: Continue Protonix. Subjective Date/time seen: 07/15/20 17:24 Interval history: Date of visit 07/15 Pt is a 40-year-old female here for COVID-19 pneumonia. Patient was seen today and feels much better each day . .Moving better and down to 8 L NC . She is eating and drinking well. . No fevers since 07/07. She denies lightheadedness and dizziness. Exam Narrative: Exam Narrative: Blood pressure 110/62 pulse is 76 saturating 93% on 8L NC General: Well developed well nourished patient in NAD HEENT: normocephalic Neck: supple Neuro: Alert and oriented x4 CV: RRR Resp: More deep breathing on exam . Faint left post basal crackle Abd: Soft, non distended
[2020-07-15] MEDS: metFORMIN HCL 500 MG TABLET PO (17:53)
[2020-07-15 18:16] LABS: Glucose Point of Care 387 (65-105)
[2020-07-15] MEDS: INSULIN GLARGINE (*BKC) 100 UNITS/ML 35 UNITS SUB-Q (20:34)
[2020-07-15] MEDS: WATER FOR IRRIGATION, STERILE 1,000 ML BOTTLE 1000 ML (20:42)
[2020-07-15 20:51] LABS: Glucose Point of Care 451 (65-105)
[2020-07-15] MEDS: HYDROcodone/acetaminophen (*CRX) 5-325 MG TABLET 1 TAB PO (20:57)
[2020-07-16] VITALS (16 sets, daily range): BP systolic 98–120; BP diastolic 54–68; PULSE 56–104; RESP 18–20; TEMP 35.9–36.9; O2SAT 85–95
[2020-07-16 00:51] LABS: Glucose Point of Care 299 (65-105)
[2020-07-16 06:17] LABS: Basophils Absolute Auto 0.1 K/mm3 (0.0-0.1); Basophils Percent Auto 0.6 % (0.2-1.2); Eosinophils Absolute Auto 0.4 K/mm3 (0-0.3); Eosinophils Percent Auto 4.4 % (0-4.4); Hematocrit 45.6 % (37.0-47.0); Hemoglobin 14.3 g/dL (12.0-15.0); Immature Granulocyte Absolute 0.11 K/mm3 (0.00-0.031); Immature Granulocyte Percent A 1.3 % (0-0.5); Lymphocytes Absolute Auto 2.31 K/mm3 (0.9-3.2); Lymphocytes Percent Auto 27.7 % (18.3-44.2); Mean Corpuscular HGB Conc 31.4 g/dl (32-36); Mean Corpuscular Hemoglobin 28.3 pg (26-34); Mean Corpuscular Volume 90.1 fl (80-100); Mean Platelet Volume 10.8 fl (7.4-10.4); Monocytes Absolute Auto 0.9 K/mm3 (0.1-0.6); Monocytes Percent Auto 10.4 % (2.6-8.5); Neutrophils Absolute Auto 4.6 K/mm3 (1.3-6.7); Neutrophils Percent Auto 55.6 % (45.5-73.1); Platelet Count Result 435 k/mm3 (150-375); Red Blood Count 5.06 M/mm3 (4.2-5.4); Red Cell Distribution Width 13.7 % (11.5-14.5); White Blood Count 8.4 K/mm3 (4.5-10.0)
[2020-07-16 06:32] LABS: Alanine Aminotransferase 189 U/L (4-35); Albumin Level 3.5 g/dL (3.5-5.1); Alkaline Phosphatase 72 U/L (38-126); Anion Gap 6 mmol/L (8-16); Aspartate Amino Transferase 74 U/L (14-36); Bilirubin,Total 0.6 mg/dL (0.2-1.3); Blood Urea Nitrogen 18 mg/dL (7-17); CRP 2.3 mg/dL (<1.0); Calcium 9.1 mg/dL (8.4-10.2); Carbon Dioxide 33 mmol/L (22-30); Chloride 99 mmol/L (98-107); Estimated CRCL calculation 122 ml/min; Estimated Glomerular Filt Rate > 60; Glucose 205 mg/dL (65-105); Lactate Dehydrogenase 536 U/L (313-618); Potassium 4.3 mmol/L (3.4-5.0); Sodium 138 mmol/L (137-145)
[2020-07-16 06:41] LABS: D Dimer 0.39 ug/mL (<0.48)
[2020-07-16] MEDS: PANTOPRAZOLE 40 MG TABLET PO (08:08)
[2020-07-16] MEDS: FUROSEMIDE INJ 40 MG/4 ML VIAL IV PUSH (08:08)
[2020-07-16] MEDS: metFORMIN HCL 500 MG TABLET PO (08:08)
[2020-07-16] MEDS: guaiFENesin 12 HR 600 MG TABCR PO (08:08)
[2020-07-16] MEDS: ENOXAPARIN 40 MG/0.4 ML SYRINGE SUB-Q (08:08)
[2020-07-16 08:29] LABS: Glucose Point of Care 154 (65-105)
[2020-07-16] MEDS: ALBUTEROL SULFATE (*SP) AEROSOL 1 PUFF 6 PUFF INHALATION ×2 (09:13→11:58)
--- NOTE | 2020-07-16 12:07 | PCOTNOTE ---
Attempted to see patient, patient declined - stated I already did everything, I don't need anything. Patient not seen for OT this date.
--- NOTE | 2020-07-16 12:15 | PCNFU ---
Nutrition Follow-Up Complete: Inadequate oral intake related to decreased appetite and taste as evidenced by intake records. Goal: Patient to consume 50% of meals/supplements or greater Patient goal as been met. No new goal. Pt current nutrition is [facility]. Nutrition recommendation: Agree Last recorded weight is 102.8 kg. no new weight to report. Bowel Motility:+BM reported 07/15 Labs Reviewed:Cr 0.6,BUN 18 Meds Noted:Glucophage,Mucinex,Protonix Additional Notes: Spoke with patient over telephone today due to COVID precautions for nutrition follow up. She states to no diet concerns. Oral Intake has been 100% of most meals. Agree with diet orders. Monitoring: Follow up every 7 days.
[2020-07-16 12:36] LABS: Glucose Point of Care 159 (65-105)
[2020-07-16] MEDS: ACETAMINOPHEN 325 MG TABLET 650 MG PO (12:50)
--- NOTE | 2020-07-16 13:08 | PCPTNOTE ---
Patient declined PT and OT today. Patient is feeling better and hopes to go home soon. Patient reports that she does not need therapy services today per OT.
--- NOTE | 2020-07-16 14:04 | HOMEO2EVAL ---
Home Oxygen Evaluation RC: Home Oxygen (O2) Evaluation Start: 07/16/20 10:52 Freq: ONCE Status: Active Protocol: RPE Activity Type Activity Date Activity User E-Sign Co-Sign Detail Recorded Client Recorded Date Recorded By Document 07/16/20 11:30 [email or web address] [email or web address] 07/16/20 14:04 KRM Document 07/16/20 11:32 [email or web address] [email or web address] 07/16/20 14:04 KRM Document 07/16/20 11:33 KRM [email or web address] 07/16/20 14:04 KRM Document 07/16/20 11:34 KRM [email or web address] 07/16/20 14:04 KRM Document 07/16/20 11:35 KRM [email or web address] 07/16/20 14:04 KRM Document 07/16/20 11:37 KRM [email or web address] 07/16/20 14:04 KRM Document 07/16/20 11:38 KRM [email or web address] 07/16/20 14:04 KRM Document 07/16/20 11:40 KRM [email or web address] 07/16/20 14:04 KRM Document 07/16/20 11:46 KRM [email or web address] 07/16/20 14:04 KRM 07/16/20 07/16/20 07/16/20 11:30 11:32 11:33 Home O2 Evaluation Test Phase Resting Resting Resting Oxygen Delivery Room Air Nasal Cannula Nasal Cannula Oxygen Flow Rate (L/min) 1 2 Pulse Oximetry (90-100 %) 86 L 85 L 85 L Pulse Rate (60-100 beats/min) 88 92 89 Activity Tolerance Ambulation Distance (feet) Home Oxygen Evaluation Comments Treatment Charges O2 Evaluation 07/16/20 07/16/20 07/16/20 11:34 11:35 11:37 Home O2 Evaluation Test Phase Resting Resting Exercise Oxygen Delivery Nasal Cannula Nasal Cannula Nasal Cannula Oxygen Flow Rate (L/min) 3 4 4 Pulse Oximetry (90-100 %) 89 L 91 87 L Pulse Rate (60-100 beats/min) 89 89 104 H Activity Tolerance Good Ambulation Distance (feet) Home Oxygen Evaluation Comments Treatment Charges 07/16/20 07/16/20 07/16/20 11:38 11:40 11:46 Home O2 Evaluation Test Phase Exercise Exercise Resting Oxygen Delivery Nasal Cannula Nasal Cannula Nasal Cannula Oxygen Flow Rate (L/min) 5 6 4 Pulse Oximetry (90-100 %) 88 L 89 L 92 Pulse Rate (60-100 beats/min) 103 H 102 H 85 Activity Tolerance Good Good Ambulation Distance (feet) 100 Home Oxygen Evaluation Comments 4LPM AT REST, 6LPM WITH ACTIVITY Treatment Charges
--- NOTE | 2020-07-16 14:05 | PCRCNOTE ---
Addendum entered by Kasia Motta, LINE LOCATOR 07/16/20 15:18: O2 TANK IN THE ROOM AND PT. INSTRUCTED TO CALL [facility] WHEN DISCHARGED. Original Note: HOME O2 SET UP WITH [facility]. 4LPM AT REST AND 6LPM WITH ACTIVITY. FAXED ALL INFO TO [phone]
--- NOTE | 2020-07-19 11:40 | PM.DS ---
DS: Admitting Diagnosis Admitting Diagnosis Admitting Diagnosis: acute respiratory failure, covid rule out DS: Discharge Diagnosis Discharge Diagnosis (1) Pneumonia due to COVID-19 virus: Code(s): U07.1 - COVID-19; J12.89 - Other viral pneumonia Status: Acute Assessment and Plan: -----patient weaned down to 4L NC by d/c. She recieved plasma 07/08/20. l. Remdesivir c/i due to elevated Lfts finished dexamethasone 10 days rx, 07/14 .. pt feeling better and requesting d/c. She was stable and seen for evaluation by respiratory rx. Able to be d/c with 02 to repeat cmp and cxr 2 weeks inflammatory markers are stable to slowly falling at d/c with crp only 2.3 (2) Acute respiratory failure with hypoxia: Code(s): J96.01 - Acute respiratory failure with hypoxia Status: Acute Assessment and Plan: -----secondary to above and sat 93% on 4L NC at d/c (3) Pneumonia: Code(s): J18.9 - Pneumonia, unspecified organism Status: Acute Assessment and Plan: -----see above. Influenza negative and BC no growth (4) Suspected 2019 novel coronavirus infection: Code(s): Z20.828 - Contact with and (suspected) exposure to other viral communicable diseases Status: Acute Assessment and Plan: positive as above (5) Sepsis: Qualifiers: Sepsis type: sepsis due to unspecified organism Sepsis acute organ dysfunction status: with acute organ dysfunction Severe sepsis acute organ dysfunction type: acute respiratory failure Acute respiratory failure type: with hypoxia Severe sepsis shock status: without septic shock Qualified Code(s): A41.9 - Sepsis, unspecified organism; R65.20 - Severe sepsis without septic shock; J96.01 - Acute respiratory failure with hypoxia Code(s): A41.9 - Sepsis, unspecified organism Status: Acute Assessment and Plan: -----noted on exam with tachycardia, tachypnea, and leucopenia. Source of sepsis appears to be due to COVID-19. Blood cultures no growth . (6) Elevated liver enzymes: Code(s): R74.8 - Abnormal levels of other serum enzymes Status: Acute Assessment and Plan: ------improving. May be secondary to COVID-19 vs. fatty liver disease. Monitor LFTs. hepatitis screen negative. CT of the chest did show hepatic steatosis and LFTs fairly stable and will follow up with repeat cmp in 2 weeks (7) Type 2 diabetes mellitus: Qualifiers: Diabetes mellitus oil heaterman insulin use: without mcfp use Diabetes mellitus complication status: without complication Qualified Code(s): E11.9 - Type 2 diabetes mellitus without complications Code(s): E11.9 - Type 2 diabetes mellitus without complications Status: Chronic Assessment and Plan: . last day of steroids 07/14 and BS should improve . restarted metformin and added lantus 20 units hs with idea if bs continued to fall off steroids she could taper off (8) GERD (gastroesophageal reflux disease): Qualifiers: Esophagitis presence: without esophagitis Qualified Code(s): K21.9 - Gastro-esophageal reflux disease without esophagitis Code(s): K21.9 - Gastro-esophageal reflux disease without esophagitis Status: Acute Assessment and Plan: Continue Protonix. DS: Summary Hospital Course Hospital Course: 40-year-old type 2 diabetic admitted with sepsis, respiratory failure with hypoxia, and found to be COVID positive. CTA revealed no emboli to see ground-glass patchy infiltrates of COVID. she received 10 days of 6 mg daily of dexamethasone while here but no remdesivir due to elevated LFTs. She also received convalescent plasma 07/08. She was slowly able to be tapered down her oxygen and was down to 4 L nasal cannula saturating 93% on room air at discharge and able to be discharged on that amount. Blood sugars ran high with the steroids and Lantus 20 units was ad
[2020-07-31 08:49] LABS: Glucose Point of Care 301 (65-105)
== END 2020-07-16 16:15 | disposition home or self-care (01) | DRG 871 ==
LOC: ANHED 20:56 → ANH3MEDSUR 07-05 03:11 → ANHICU 07-07 17:21 → ANH3MEDSUR 07-16 13:36 → ANHICU 07-17 13:48
PROVIDERS: Emergency Medicine; Internal Medicine; Admitting Provider Family Medicine; Emergency Provider General Practice; Visit Provider Physician Assistant
DX: A41.89 Other specified sepsis (principal); U07.1 COVID-19; J96.01 Acute respiratory failure with hypoxia; J12.89 Other viral pneumonia; R65.20 Severe sepsis without septic shock; E11.9 Type 2 diabetes mellitus without complications; E66.01 Morbid (severe) obesity due to excess calories; Z68.38 Body mass index [BMI] 38.0-38.9, adult; K21.9 Gastro-esophageal reflux disease without esophagitis; E78.5 Hyperlipidemia, unspecified; R74.8 Abnormal levels of other serum enzymes
CPT/HCPCS: 36415; 36430; 36600; 71045; 71275; 80048; 80053; 80074; 80076; 81001; 82306; 82375; 82728; 82805; 83050; 83605; 83615; 83735; 84484; 85025; 85027; 85380; 85610; 85730; 86140; 86900; 86901; 87040; 87070; 87086; 87088; 87205; 87449; 87635; 87804; 87899; 93005; 94618; 94640; 94667; 96374; 97110; 97116; 97161; 97165; 97530; 99291; A9270; C9803; J0456; J0696; J1650; J1815; J1940; J7030; J7050; J8540; P9059; Q9967; U0003

== ENCOUNTER 2021-03-25 08:02 | Emergency (ER) | payer BC, SELFPAY ==
[2021-03-25 08:08] VITALS: BP 147/92; PULSE 83; RESP 16; TEMP 36.2; O2SAT 98
--- NOTE | 2021-03-25 08:11 | ED.URI ---
HPI - URI/Sore Throat General Chief Complaint: Upper Respiratory Infection Stated Complaint: Cough,Sore Throat Time Seen by Provider: 03/25/21 08:11 Source: patient, RN notes reviewed and old records reviewed Mode of arrival: ambulatory Limitations: no limitations History of Present Illness HPI Narrative: 40-year-old female presents to the [facility] with complaints of a cough and red throat. Patient states that 1 week ago she started with a cough that was more of a tickle, dry, nonproductive. Today woke up with a red swollen throat and stuffy nose, bloody nose. Has a history of diabetes, acid reflux, elevated liver enzymes, elevated cholesterol. Took some Sudafed this morning but otherwise no treatment prior to arrival. Denies fevers. Related Data Allergies Allergy/AdvReac Type Severity Reaction Status Date / Time dulaglutide Allergy Unknown Unknown Verified 07/01/20 18:24 morphine Allergy Unknown hives Verified 07/01/20 18:24 topiramate Allergy Unknown Hives Verified 07/01/20 18:24 Review of Systems Review of Systems: All systems reviewed & are unremarkable except as noted in HPI and below Constitutional: Constitutional: Reports no additional constitutional complaints, Denies chills, Denies fatigue and Denies fever(s) Eyes: Eyes: Reports no additional eye complaints, Denies change in vision and Denies photophobia ENT: Reports as per HPI Cardiovascular: Cardiovascular: Reports no additional cardiovascular complaints and Denies chest pain Respiratory: Respiratory: Reports as per HPI, Reports cough, Denies dyspnea and Denies wheezing Gastrointestinal: Gastrointestinal: Reports no additional gastrointestinal complaints, Denies abdominal pain, Denies diarrhea, Denies nausea and Denies vomiting Genitourinary: Genitourinary: Reports no additional female genitourinary complaints Musculoskeletal: Musculoskeletal: Reports no additional musculoskeletal complaints Integumentary/Breasts: Skin/Breast: Reports system reviewed and no additional complaints, except as docu Neurologic: Reports system reviewed and no additional complaints, except as documented Endocrine: Endocrine: Reports no additional endocrine complaints, Denies fatigue and Denies polydipsia Allergic/Immunologic: Allergic/Immunologic: Reports no additional allergic/immunologic complaints PMFSH Past Medical History Medical History Allergies Elevated liver enzymes GERD (gastroesophageal reflux disease) Hyperlipidemia Obesity Type 2 diabetes mellitus Surgical History Surgical History H/O removal of cyst Foot cyst 2006 H/O tubal ligation 2002 H/O: hysterectomy 2016 Family History Family History Mother Hypertension Family history of diabetes mellitus in first degree relative Diabetes mellitus Father Patient's father is in good health Family history of glaucoma Acute myocardial infarction Family history of malignant neoplasm of urinary bladder S/P triple vessel bypass Sibling Patient's brother is in good health Grandparent Diabetes mellitus Other Family history of rheumatoid arthritis Social History Social History Smoking status: Never smoker Alcohol intake: current Drinks per week: 1 Substance use: never Gender identity (if verbalized by the patient): Female Spiritual care concerns: No Comments At the time of my signature, I reviewed and agree with the nursing past medical, surgical, social, and family history. There is no relevant family history pertinent to the patient complaint. Exam Const: General: healthy appearing, no acute distress and alert Nutritional Appearance: well nourished and obese morbidly obese Orientation/consciousness: patient oriented x3 HENMT: Head: normal to inspection Ears: hearing grossly normal b
[2021-03-25 18:48] LABS: Glucose Point of Care 357 mg/dl (65-105)
== END 2021-03-25 08:38 | disposition home or self-care (01) ==
PROVIDERS: Emergency Provider Nurse Practitioner; PCP Clinical Nurse Specialist
DX: K12.2 Cellulitis and abscess of mouth (principal); J03.90 Acute tonsillitis, unspecified; K21.9 Gastro-esophageal reflux disease without esophagitis; E11.9 Type 2 diabetes mellitus without complications; E66.9 Obesity, unspecified; Z68.39 Body mass index [BMI] 39.0-39.9, adult
CPT/HCPCS: 82948; 87081; 87880; 99213; G0463

== ENCOUNTER 2021-08-11 17:25 | Emergency (ER) | payer BC, SELFPAY ==
--- NOTE | ~2021-08-11 | XR_ITS ---
EXAMINATION: XR elbow RT min 3V DATE: 08/11/2021 18:02 INDICATION: Posterior left elbow pain post fall TECHNIQUE: Anteroposterior, two oblique and lateral views of the right elbow were obtained. COMPARISON: None. FINDINGS: Alignment is normal. No fracture or joint effusion. 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 Mild soft tissue swelling posterior to the proximal ulna. IMPRESSION: 1. No right elbow joint effusion or acute osseous abnormality. Reviewed, dictated and finalized at location A. RITHM DEVELOPER
--- NOTE | ~2021-08-11 | XR_ITS ---
EXAMINATION: XR foot RT min 3V DATE: 08/11/2021 18:02 INDICATION: Great toe pain at the right foot post fall TECHNIQUE: Dorsoplantar, two oblique and lateral views of the right foot were obtained. COMPARISON: None. FINDINGS: Small nondisplaced avulsion fracture at the lateral base of the right first distal phalanx of the lat eral most margin of the articular surface. Alignment remains essentially anatomic. No other fractures identified. Mild osteoarthritis at the first metatarsophalangeal and a few tarsal metatarsal and int erphalangeal joints. Small Achilles calcaneal spur. IMPRESSION: 1. Small nondisplaced avulsion fracture at the lateral base of the right first distal phalanx. Reviewed, dictated and finalized at location A. MANAGEMENT CONSULTANT
--- NOTE | ~2021-08-11 | XR_ITS ---
EXAMINATION: XR shoulder LT min 2V DATE: 08/11/2021 18:02 INDICATION: Left shoulder pain post fall TECHNIQUE: AP and transscapular Y views of the left shoulder were obtained. COMPARISON: None FINDINGS: Normal alignment. No fracture. The glenohumeral and acromioclavicular joints appear unremarkable but are suboptimally profiled. Soft tissues are unremarkable. Calcite nodules in the left lower lung scott ng with calcified mediastinal lymph node consistent with old granulomatous disease. IMPRESSION: No acute osseous abnormality. Reviewed, dictated and finalized at location A. RAL PASSENGER AGENT
[2021-08-11 17:33] VITALS: BP 148/97; PULSE 92; RESP 16; TEMP 36.8; O2SAT 99
--- NOTE | 2021-08-11 17:33 | ED.UPPEXIN ---
HPI - Extremity Injury (Upper) General Chief Complaint: Extremity Injury, Upper Stated Complaint: right toe/elbow left shoulder pain Time Seen by Provider: 08/11/21 17:33 Source: patient and RN notes reviewed Mode of arrival: ambulatory Limitations: no limitations History of Present Illness HPI narrative: 41-year-old female presents to the [facility] with complaints of right elbow pain with abrasion, right great toe pain and left shoulder pain after tripping and falling landing on her right elbow. Denies hitting head. No loss of consciousness. No neck pain or back pain. No pelvic pain. States that she thinks she bruised her knees but states the pain is greatest in the right posterior elbow, right great toe base. Has full range of motion of all joints. No abdominal pain or chest pain. No shortness of breath. Related Data Home Medications Medication Instructions Recorded Confirmed glipizide mg 08/11/21 Allergies Allergy/AdvReac Type Severity Reaction Status Date / Time dulaglutide Allergy Unknown Unknown Verified 07/01/20 18:24 morphine Allergy Unknown hives Verified 07/01/20 18:24 topiramate Allergy Unknown Hives Verified 07/01/20 18:24 Review of Systems Review of Systems: All systems reviewed & are unremarkable except as noted in HPI and below Constitutional: Constitutional: Reports no additional constitutional complaints, Denies chills and Denies fever(s) Eyes: Eyes: Reports no additional eye complaints and Denies change in vision ENT: Reports system reviewed and no additional complaints, except as documented Cardiovascular: Cardiovascular: Reports no additional cardiovascular complaints and Denies chest pain Respiratory: Respiratory: Reports no additional respiratory complaints, Denies cough and Denies dyspnea Gastrointestinal: Gastrointestinal: Reports no additional gastrointestinal complaints, Denies abdominal pain, Denies diarrhea, Denies nausea and Denies vomiting Genitourinary: Genitourinary: Reports no additional female genitourinary complaints Musculoskeletal: Musculoskeletal: Reports as per HPI, Denies back pain, Denies myalgias, Reports arthralgias, Denies joint swelling and Denies muscle cramps Comments: Right posterior elbow, right base great toe, left anterior shoulder Integumentary/Breasts: Skin/Breast: Reports as per HPI Comments: Abrasion right posterior elbow Neurologic: Reports system reviewed and no additional complaints, except as documented Psychiatric: Psychiatric: Reports no additional psychiatric complaints Allergic/Immunologic: Allergic/Immunologic: Reports no additional allergic/immunologic complaints PMFSH Past Medical History Medical History Allergies Elevated liver enzymes GERD (gastroesophageal reflux disease) Hyperlipidemia Obesity Type 2 diabetes mellitus Surgical History Surgical History H/O removal of cyst Foot cyst 2006 H/O tubal ligation 2002 H/O: hysterectomy 2016 Family History Family History Mother Hypertension Family history of diabetes mellitus in first degree relative Diabetes mellitus Father Patient's father is in good health Family history of glaucoma Acute myocardial infarction Family history of malignant neoplasm of urinary bladder S/P triple vessel bypass Sibling Patient's brother is in good health Grandparent Diabetes mellitus Other Family history of rheumatoid arthritis Social History Social History Smoking status: Never smoker Alcohol intake: current Drinks per week: 1 Alcohol use details: Pt drinks occasionally Substance use: never Gender identity (if verbalized by the patient): Female Spiritual care concerns: No Comments At the time of my signature, I reviewed and agree with the nursing past medical, heather
== END 2021-08-11 18:43 | disposition home or self-care (01) ==
PROVIDERS: Emergency Provider Nurse Practitioner
DX: M25.512 Pain in left shoulder (principal); S92.414A Nondisplaced fracture of proximal phalanx of right great toe, initial encounter for closed fracture; W01.0XXA Fall on same level from slipping, tripping and stumbling without subsequent striking against object, initial encounter; K21.9 Gastro-esophageal reflux disease without esophagitis; E78.5 Hyperlipidemia, unspecified; E11.9 Type 2 diabetes mellitus without complications; E66.9 Obesity, unspecified; Z68.41 Body mass index [BMI] 40.0-44.9, adult
CPT/HCPCS: 73030; 73080; 73630; 99214; G0463

== ENCOUNTER 2022-04-29 17:34 | Outpatient (CLI) | payer BC, SELFPAY ==
--- NOTE | ~2022-04-29 | CT_ITS ---
EXAMINATION: CT abdomen pelvis wo con DATE: 04/29/2022 17:52 INDICATION: Chronic right flank pain. Urinary frequency. History of kidney stones. TECHNIQUE: Computed tomography (CT) of the abdomen and pelvis was performed without intravenous contr ast. Automated exposure control and iterative reconstruction technique were employed. Exam dose: 652 .79 mGy-cm total exam DLP. COMPARISON: August 01, 2012 limited abdominal ultrasound examination 12/06/2010 CT abdomen FINDINGS: The lung bases are clear of infiltrate or consolidation. Normal heart size. No pericardial or pleural effusion. Hepatic steatosis. No hepatic, splenic, pancreatic, and adrenal or renal space-occupying mass lesion is detected on this limited noncontrast examination. Stable very small right lateral mid renal cortic al cyst. Stable small lower pole right renal cyst. Posterior lower pole left renal scarring. The gallbladder is contracted, stable since 12/06/2010. No bile duct or pancreatic duct dilatation. No urinary tract calculus or hydroureteronephrosis. The urinary bladder is unremarkable. Status post hysterectomy. Normal caliber of the abdominal aorta. No intraperitoneal or retroperitoneal or pelvic mass lesion or adenopathy or ascites. Normal appendix. No bowel obstruction or intraperitoneal free air. Small fat-containing umbilical hernia. Mild likely chronic compression fracture deformity of T9. Diffuse idiopathic skeletal hyperostosis of the thoracic spine. IMPRESSION: No urinary tract calculi or hydroureteronephrosis Status post hysterectomy Normal appendix Hepatic steatosis Small right renal cysts Reviewed, dictated and finalized at Location A. Reviewed, dictated and finalized at location B.
== END 2022-04-29 17:35 | disposition home or self-care (01) ==
PROVIDERS: PCP Nurse Practitioner Family; Visit Provider Nurse Practitioner Family
DX: R10.9 Unspecified abdominal pain (principal); Z90.710 Acquired absence of both cervix and uterus; K76.0 Fatty (change of) liver, not elsewhere classified; N28.1 Cyst of kidney, acquired
CPT/HCPCS: 74176

== ENCOUNTER 2022-08-14 09:19 | Emergency (ER) | payer BC, SELFPAY ==
[2022-08-14 09:22] VITALS: BP 153/95; PULSE 79; RESP 16; TEMP 36.1; O2SAT 99
[2022-08-14] MEDS: TETANUS,DIPHTHERIA,AC PERTUSSIS ADULT (0.5 ML) BOOSTRIX IM (10:05)
--- NOTE | 2022-08-14 10:27 | ED.WOUNDLAC ---
HPI - Wound/Laceration General Chief Complaint: Wound/Laceration Stated Complaint: L FINGER LACERATION Time Seen by Provider: 08/14/22 09:32 Source: patient Mode of arrival: ambulatory Limitations: no limitations History of Present Illness HPI narrative: 42-year-old female presents today with complaints of laceration to left first digit. Patient states she was cutting up [employer] to make dressing when she cut her finger. Unsure of last tetanus. Bleeding currently under control. No numbness or tingling to digit. Full range of motion. Related Data Home Medications Medication Instructions Recorded Confirmed glipizide 5 mg tablet mg 08/11/21 Allergies Allergy/AdvReac Type Severity Reaction Status Date / Time dulaglutide Allergy Unknown Unknown Verified 08/14/22 09:35 morphine Allergy Unknown hives Verified 08/14/22 09:35 topiramate Allergy Unknown Hives Verified 08/14/22 09:35 Review of Systems Review of Systems: CONSTITUTIONAL: Denies fever, chills, or sweats. EYES: Denies visual changes, redness, or discharge. ENT: Denies rhinorrhea, congestion, sore throat, or otalgia. CARDIOVASCULAR: Denies chest pain, palpitations, or edema. RESPIRATORY: Denies cough or dyspnea. SKIN: Laceration left second digit. Denies rash or itching. MUSCULOSKELETAL: Denies back pain, joint pain, or myalgia. [facility] Past Medical History Medical History Allergies Elevated liver enzymes GERD (gastroesophageal reflux disease) Hyperlipidemia Obesity Type 2 diabetes mellitus Surgical History Surgical History H/O removal of cyst Foot cyst 2006 H/O tubal ligation 2002 H/O: hysterectomy 2017 Family History Family History Mother Hypertension Family history of diabetes mellitus in first degree relative Diabetes mellitus Father Patient's father is in good health Family history of glaucoma Acute myocardial infarction Family history of malignant neoplasm of urinary bladder S/P triple vessel bypass Sibling Patient's brother is in good health Grandparent Diabetes mellitus Other Family history of rheumatoid arthritis Social History Social History Smoking status: Never smoker Alcohol intake: current Drinks per week: 1 Alcohol use details: Pt drinks occasionally Substance use: never Gender identity (if verbalized by the patient): Female Spiritual care concerns: No Exam Const: General: healthy appearing, no acute distress and alert HENMT: Head: normal to inspection Eyes: Conjunctivae: conjunctivae normal Pupils: Equal, round and reactive pupils present Resp: Effort & Inspection: normal respiratory effort Auscultation: clear to auscultation bilaterally Cardio: Rate: regular rate Rhythm: regular rhythm Skin: General skin exam: normal color Wounds: wounds noted laceration left distal 2nd finger size (1cm) and margins well approximated Neuro: General: patient oriented x3 Course Vital Signs Vital signs: Vital Signs Temperature 97 F L 08/14/22 09:22 Pulse Rate 79 08/14/22 09:22 Respiratory Rate 16 08/14/22 09:22 Blood Pressure 153/95 H 08/14/22 09:22 Pulse Oximetry 99 08/14/22 09:22 Temperature 97 F L 08/14/22 09:22 Pulse Rate 79 08/14/22 09:22 Respiratory Rate 16 08/14/22 09:22 Blood Pressure 153/95 H 08/14/22 09:22 Pulse Oximetry 99 08/14/22 09:22 Procedures Laceration Laceration 1: Date: 08/14/22 Time: 10:20 Site: hand (Second digit) Side (If applicable): left Size (cm): 1 Description: linear Depth: simple, single layer Local Anesthetic: none Pre-repair: wound explored and irrigated ====== Skin Level ====== Skin layer closed with: dermabond
== END 2022-08-14 10:57 | disposition home or self-care (01) ==
PROVIDERS: Emergency Provider Nurse Practitioner Family; PCP Nurse Practitioner Family
DX: S61.211A Laceration without foreign body of left index finger without damage to nail, initial encounter (principal); Z23 Encounter for immunization; E78.5 Hyperlipidemia, unspecified; E11.9 Type 2 diabetes mellitus without complications; K21.9 Gastro-esophageal reflux disease without esophagitis; E66.9 Obesity, unspecified; Z68.35 Body mass index [BMI] 35.0-35.9, adult; Z90.710 Acquired absence of both cervix and uterus; Z79.84 Long term (current) use of oral hypoglycemic drugs; Z79.4 Long term (current) use of insulin; Y93.G1 Activity, food preparation and clean up; W26.8XXA Contact with other sharp object(s), not elsewhere classified, initial encounter
CPT/HCPCS: 12001; 90471; 90715; 99282

== ENCOUNTER 2022-08-30 08:26 | Outpatient (CLI) | payer BC, SELFPAY ==
--- NOTE | ~2022-08-30 | MR_ITS ---
EXAMINATION: MR shoulder LT wo con DATE: 08/30/2022 09:13 INDICATION: Chronic left shoulder pain, decreased ROM of left shoulder . Fall one year ago. TECHNIQUE: Magnetic resonance imaging (MRI) of the left shoulder was performed without intravenous co ntrast. Sequences included axial PD-weighted FS FSE, coronal oblique PD-weighted FS FSE and T2-weight ed FS FSE, and sagittal oblique T2-weighted FS FSE and T1-weighted FSE. COMPARISON: X-ray left shoulder 08/11/2021. FINDINGS: Coracoacromial arch: Moderate AC joint hypertrophy. No significant anterolateral downsloping of the type I acromion. No si gnificant subacromial or subcoracoid narrowing Rotator cuff: Supraspinatus tendinopathy. Intrasubstance type tearing of the infraspinous. Split tear of the distal subscapularis tendon. Teres minor is intact. Biceps tendon and glenoid labrum: Long head of biceps tendon is partially subluxed and thinned, but intact. Fluid: None Bones/cartilage: Marrow edema about the AC joint. No suspicious focal or diffuse marrow signal. IMPRESSION: 1. Intrasubstance type tearing of the infraspinatus, in a background of superior cuff tendinopathy. 2. Partial tear of the distal subscapularis tendon with partial subluxation of the long head of bicep s tendon. 3. Moderate AC joint hypertrophy, with adjacent marrow edema, may reflect a component of inflammation or inflammatory arthropathy. Correlate with pain and/or point tenderness Reviewed, dictated and finalized at location K. CTOR OF SECURITIES AND REAL ESTATE IMPRESSION: 1. Intrasubstance type tearing of the infraspinatus, in a background of superio r cuff tendinopathy. 2. Partial tear of the distal subscapularis tendon with partial subluxation of the long head of biceps tendon. 3. Moderate AC joint hypertrophy, with adjacent marrow edema, may reflect a com ponent of inflammation or inflammatory arthropathy. Correlate with pain and/or point tenderness
== END 2022-08-30 08:27 | disposition home or self-care (01) ==
PROVIDERS: PCP Nurse Practitioner Family; Visit Provider Nurse Practitioner Family
DX: M25.512 Pain in left shoulder (principal); M25.612 Stiffness of left shoulder, not elsewhere classified; G89.29 Other chronic pain; S46.812A Strain of other muscles, fascia and tendons at shoulder and upper arm level, left arm, initial encounter; S46.112A Strain of muscle, fascia and tendon of long head of biceps, left arm, initial encounter
CPT/HCPCS: 73221

== ENCOUNTER 2023-01-20 22:02 | Emergency (ER) | payer BC, SELFPAY ==
[2023-01-20] VITALS (11 sets, daily range): BP systolic 143–155; BP diastolic 94–103; PULSE 75–84; RESP 16–19; TEMP 36.1–36.7; O2SAT 93–100
--- NOTE | ~2023-01-20 | CT_ITS ---
Non-contrast CT scan of the Abdomen and Pelvis Clinical indication: Flank pain Technique: 2.5 mm axial scans were obtained through the abdomen and pelvis without intravenous or or al contrast. Dose reduction technique was used on this scan by utilizing automated exposure control a nd iterative reconstruction technique. The dose-length product (DLP) was 393.77 mGy-cm. COMPARISON: 04/29/2022 Findings: Images through the lung bases reveal no abnormalities. There is no evidence of renal or ureteral calculi. The kidneys and the ureters are nondilated. The liver, spleen, pancreas, gallbladder, and adrenals appear normal. There is no aortic aneurysm. There is no evidence of bowel obstruction. Tiny fat-containing umbilical hernia noted. Normal appendi x. Images through the pelvis were performed. There is no evidence of ascites or lymphadenopathy. Urinary bladder unremarkable. Patient appears pseudocyst are identified. No pelvic mass seen. Impression: No significant abnormality seen. Reviewed, dictated and finalized at [facility]. Impression: No significant abnormality seen.
[2023-01-20 22:48] LABS: Basophils Absolute Auto 0.1 K/mm3 (0.0-0.1); Basophils Percent Auto 0.7 % (0.2-1.2); Eosinophils Absolute Auto 0.2 K/mm3 (0-0.3); Eosinophils Percent Auto 2.1 % (0-4.4); Hematocrit 42.2 % (37.0-47.0); Hemoglobin 13.9 g/dL (12.0-15.0); Immature Granulocyte Absolute 0.03 K/mm3 (0.00-0.031); Immature Granulocyte Percent A 0.3 % (0-0.5); Lymphocytes Absolute Auto 3.32 K/mm3 (0.9-3.2); Mean Corpuscular HGB Conc 32.9 g/dl (32-36); Mean Corpuscular Hemoglobin 29.8 pg (26-34); Mean Corpuscular Volume 90.4 fl (80-100); Mean Platelet Volume 10.3 fl (7.4-10.4); Monocytes Percent Auto 9.4 % (2.6-8.5); Neutrophils Absolute Auto 6.1 K/mm3 (1.3-6.7); Neutrophils Percent Auto 56.5 % (45.5-73.1); Platelet Count Result 321 k/mm3 (150-375); Red Blood Count 4.67 M/mm3 (4.2-5.4); Red Cell Distribution Width 13.1 % (11.5-14.5); White Blood Count 10.7 K/mm3 (4.5-10.0)
[2023-01-20 22:49] LABS: Appearance Urine Clear (Clear); Bilirubin Urine Negative (Negative); Blood Urine Negative (Negative); Color Urine Yellow (Yellow); Glucose Urine UA Negative (Negative); Ketones Urine Negative (Negative); Leukocyte Esterase Ur Negative LEU/UL (Negative); Nitrate Urine Negative (Negative); Protein Urine Negative (Negative); Specific Grav Ur 1.009 (1.001-1.035); Urobilinogen Urine 0.2 mg/dL (<2.0); pH Urine 6.5 (5.0-9.0)
[2023-01-20 22:58] LABS: Alanine Aminotransferase 22 U/L (6-35); Albumin Level 4.2 g/dL (3.5-5.1); Alkaline Phosphatase 65 U/L (38-126); Anion Gap 8 mmol/L (8-16); Aspartate Amino Transferase 23 U/L (14-36); Bilirubin,Total 0.6 mg/dL (0.2-1.3); Blood Urea Nitrogen 16 mg/dL (7-17); Carbon Dioxide 27 mmol/L (22-30); Chloride 100 mmol/L (98-107); Estimated CRCL calculation 106 ml/min; Estimated Glomerular Filt Rate > 60; Glucose 89 mg/dL (65-110); Potassium 3.7 mmol/L (3.4-5.0); Sodium 135 mmol/L (137-145)
[2023-01-20 23:12] LABS: Add Urine Microscopic? NO
[2023-01-20 23:17] LABS: Lipase 83 U/L (23-300)
[2023-01-21] VITALS: O2SAT 100
[2023-01-21] MEDS: ACETAMINOPHEN 500 MG TABLET 1000 MG PO (00:27)
[2023-01-21] MEDS: IBUPROFEN 400 MG TABLET 800 MG PO (00:27)
--- NOTE | 2023-01-21 00:43 | ED.GENADULT ---
HPI - General Adult General Chief complaint: Back Pain/Injury Stated complaint: flank pain Time Seen by Provider: 01/20/23 23:17 History of Present Illness HPI narrative: 42-year-old female with 2 days of right flank pain. It is a dull pain that becomes sharp when she moves and wraps around her right side. It is 5/10 intensity and comes and goes. She says this may feel like when she had kidney stones that was a long time ago and she is not sure. Pain is worse with movement. She has not taken anything for pain control. She denies fever, chills, nausea, vomiting, urinary symptoms, chest pain difficulty breathing or abdominal pain. Related Data Home Medications Medication Instructions Recorded Confirmed glipizide 5 mg tablet mg 08/11/21 Allergies Allergy/AdvReac Type Severity Reaction Status Date / Time dulaglutide Allergy Unknown Unknown Verified 01/20/23 22:22 morphine Allergy Unknown hives Verified 01/20/23 22:22 [facility] Past Medical History Medical History Allergies Elevated liver enzymes GERD (gastroesophageal reflux disease) Hyperlipidemia Obesity Type 2 diabetes mellitus Surgical History Surgical History H/O removal of cyst Foot cyst 2006 H/O tubal ligation 2002 H/O: hysterectomy 2016 Family History Family History Mother Hypertension Family history of diabetes mellitus in first degree relative Diabetes mellitus Father Patient's father is in good health Family history of glaucoma Acute myocardial infarction Family history of malignant neoplasm of urinary bladder S/P triple vessel bypass Sibling Patient's brother is in good health Grandparent Diabetes mellitus Other Family history of rheumatoid arthritis Social History Social History Smoking status: Never smoker Alcohol intake: current Drinks per week: 1 Alcohol use details: Pt drinks occasionally Substance use: never Gender identity (if verbalized by the patient): Female Spiritual care concerns: No Exam Narrative: APPEARANCE: No apparent distress. Head: atraumatic. EYES: EOMI, NOSE: Atraumatic NECK: Trachea midline RESPIRATORY: No increased rate of breathing, clear to auscultation CARDIOVASCULAR: RRR, ABDOMINAL: Non-distended , soft nontender no guarding or rebound mild CVA tenderness on the right MUSCULOSKELETAl: No obvious deformities NEURO: Alert. Moving 4/4 extremities SKIN:: Warm, dry. Normal color PSYCHIATRIC: Normal affect Course Vital Signs Vital signs: Vital Signs Temperature 96.9 F L 01/20/23 22:04 Pulse Rate 78 01/20/23 22:04 Respiratory Rate 16 01/20/23 22:04 Blood Pressure 155/94 H 01/20/23 22:04 Pulse Oximetry 100 01/20/23 22:04 Oxygen Delivery Room Air 01/20/23 22:04 Temperature 98.0 F 01/20/23 22:22 Pulse Rate 84 01/20/23 22:22 Respiratory Rate 18 01/20/23 22:22 Blood Pressure 143/103 H 01/20/23 22:31 Pulse Oximetry 100 01/21/23 00:00 Oxygen Delivery Room Air 01/20/23 22:22 Medical Decision Making MDM Narrative Medical decision making narrative: -Presentation: this is a 42-year-old female presenting with right flank pain. 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 BMP normal. Urinalysis negative for infection or blood. No elevations of liver enzymes. Official read of the CT abdomen pelvis was pending when the patient had to leave. Official read luis
[2023-01-21] MEDS: methocarbamoL 750 MG TABLET 1500 MG PO (01:29)
[2023-01-21 01:30] VITALS: BP 146/102; PULSE 83; RESP 20; O2SAT 98
== END 2023-01-21 01:34 | disposition home or self-care (01) ==
PROVIDERS: Emergency Provider Emergency Medicine; PCP Nurse Practitioner Family
DX: R10.9 Unspecified abdominal pain (principal); E78.5 Hyperlipidemia, unspecified; E11.9 Type 2 diabetes mellitus without complications; K21.9 Gastro-esophageal reflux disease without esophagitis; E66.9 Obesity, unspecified; Z68.30 Body mass index [BMI] 30.0-30.9, adult; Z79.84 Long term (current) use of oral hypoglycemic drugs; Z90.710 Acquired absence of both cervix and uterus
CPT/HCPCS: 36415; 74176; 80053; 81003; 81025; 83690; 85025; 99284; A9270